=== PATIENT | female | born 1935 | race Hispanic/Latino ===

== ENCOUNTER 2023-04-28 10:59 | Emergency (ER) | payer OTHER ==
[2023-04-28 11:54] LABS: Absolute Lymphocytes (CBC) 1.7 K/uL (0.7-4.9); Hematocrit 38.3 % (36.0-45.0); Lymphocytes % 14.7 % (15.3-44.8); MCV 85.1 fL (80-100); MPV 7.5 fL (7.6-11.3); Platelets 396 thou/uL (152-406); RBC Red Blood Cell Count 4.51 M/uL (3.86-4.86)
[2023-04-28 12:03] LABS: SARS-CoV-2 Antigen Rapid Res Negative (Negative)
[2023-04-28 12:08] LABS: Magnesium 2.6 mg/dL (1.6-2.4); Potassium 4.9 mEq/L (3.5-5.1); Troponin High Sensitivity 12.8 pg/mL (<58.9)
--- NOTE | 2023-04-28 12:11 | RAD REPORT ---
EXAM DESCRIPTION: RAD - Chest Single View - 04/28/2023 11:52 am CLINICAL HISTORY: COUGH Chest pain. COMPARISON: Chest Pa And Lat (2 Views) dated 03/19/2023; Chest Pa And Lat (2 Views) dated 11/30/2021; Chest Single View dated 10/07/2016; Chest Pa And Lat (2 Views) dated 04/26/2016 FINDINGS: Portable technique limits examination quality. Moderate bilateral pulmonary opacities likely representing pulmonary edema. The heart is moderately e nlarged. No displaced fractures. IMPRESSION: Moderate CHF versus volume overload.
--- NOTE | 2023-04-28 13:02 | ER ---
Nurse's Notes [facility] Name: Renetta Ward Age: 87 yrs Sex: Female : 1935 Arrival Date: 04/28/2023 Time: 10:59 Bed 8 Private MD: Teddy Nash V Diagnosis: Cough, pneumonia Presentation: 04/28 11:12 Method Of Arrival: Wheelchair ll1 11:27 Chief complaint: Patient states: Cough and confusion. Ebola Screen: Patient denies ll1 travel to an Ebola-affected area in the 21 days before illness onset. Initial Sepsis Screen: Does the patient meet any 2 criteria? No. Patient's initial sepsis screen is negative. Does the patient have a suspected source of infection? No. Patient's initial sepsis screen is negative. Risk Assessment: Do you want to hurt yourself or someone else? Patient reports no desire to harm self or others. 11:27 Acuity: LISBETH 2 ll1 11:42 Coronavirus screen: At this time, the client does not indicate any symptoms associated kc6 with coronavirus-19. Onset of symptoms was April 28, 2023. Historical: - Allergies: 11:11 No Known Allergies; ll1 - PMHx: 11:11 acid reflux; Hypertension; Hypercholesterolemia; ll1 - Immunization history:: Adult Immunizations up to date. - Social history:: Smoking status: Patient denies any tobacco usage or history of. Screenin:42 [facility] ED Fall Risk Assessment (Adult) History of falling in the last 3 months, kc6 including since admission No falls in past 3 months (0 pts) Confusion or Disorientation Yes (5 pts) Intoxicated or Sedated No (0 pts) Impaired Gait Yes (1 pt) Mobility Assist Device Used Yes (1 pt) Altered Elimination No (0 pt) Score/Fall Risk Level 3 or more points = High Risk. Abuse screen: Denies threats or abuse. Denies injuries from another. Nutritional screening: No deficits noted. Tuberculosis screening: No symptoms or risk factors identified. Assessment: 12:08 General: Appears in no apparent distress. comfortable, obese, well groomed, Behavior is kc6 calm, cooperative, appropriate for age, drowsy. Neuro: Level of Consciousness is awake, alert, obeys commands, Oriented to person, place, time, situation, Appropriate for age Reports headache auditory hallucinations. Cardiovascular: Denies chest pain, Heart tones S1 S2 present Capillary refill < 3 seconds Rhythm is sinus rhythm. Respiratory: Reports cough that is non-productive, Airway is patent Trachea midline Respiratory effort is even, unlabored, Respiratory pattern is regular, symmetrical. GI: No signs and/or symptoms were reported involving the gastrointestinal system. : No signs and/or symptoms were reported regarding the genitourinary system. EENT: No signs and/or symptoms were reported regarding the EENT system. Derm: No signs and/or symptoms reported regarding the dermatologic system. Skin is intact, is healthy with good turgor, Skin is pink, warm \T\ dry. Musculoskeletal: No signs and/or symptoms reported regarding the musculoskeletal system. Circulation, motion, and sensation intact. Capillary refill < 3 seconds, Range of motion: intact in all extremities. 13:08 Reassessment: Patient appears in no apparent distress at this time. No changes from kc6 previously documented assessment. Patient and/or family updated on plan of care and expected duration. Pain level reassessed. Patient is alert, oriented x 3, equal unlabored respirations, skin warm/dry/pink. 14:08 Reassessment: Patient appears in no apparent distress at this time. No changes from kc6 previously documented assessment. Patient and/or family updated on plan of care and expected duration. Pain level reassessed. Patient is alert, oriented x 3, equal unlabored respirations, skin warm/dry/pink. 15:08 Reassessment: Patient appears in no apparent distress at this time. No changes from kc6 previously documented assessment. Patient and/or family updated on plan of care and expected duration. Pain level reassessed. Patient is alert, oriented x 3, equal unlabored respirations, skin warm/dry/pink. Vital Signs: 12:07 BP 196 / 63; Pulse 72; Resp 18 S; Pulse Ox 93% on R/A; kc6 12:46 BP 188 / 67; Pulse 76; Resp 18 S; Temp 97.3(TE); Pulse Ox 95% on R/A; kc6 15:18 BP 164 / 64; Pulse 64; Resp 18 S; Pulse Ox 95% on R/A; kc6 ED Course: 11:01 Patient arrived in ED. as 11:02 Teddy Nash MD is Private Physician. as 11:03 Nina Oviedo MD is Attending Physician. sp3 11:12 Arm band placed on Patient placed in an exam room, on a stretcher. ll1 11:27 Triage completed. ll1 11:38 SARS RAPID Sent. bc6 11:38 Flu Sent. bc6 11:39 Basic Metabolic Panel Sent. bc6 11:39 CBC with Diff Sent. bc6 11:39 Magnesium Sent. bc6 11:39 NT PRO-BNP Sent. bc6 11:39 Troponin HS Sent. bc6 11:39 Inserted saline lock: 22 gauge in right forearm, using aseptic technique. Blood bc6 collected. 11:42 Patient has correct armband on for positive identification. Bed in low position. Call kc6 light in reach. Side rails up X2. Adult w/ patient. Client placed on continuous cardiac and pulse oximetry monitoring. NIBP monitoring applied. monitor and storage bin tender on. 11:42 Patient maintains SpO2 saturation greater than 95% on room air. kc6 11:54 XRAY Chest (1 view) In Process Unspecified. EDMS 12:41 Maria A Malave, RN is Primary Nurse. kc6 15:31 No provider procedures requiring assistance completed. IV discontinued, intact, kc6 bleeding controlled, No redness/swelling at site. Pressure dressing applied. Administered Medications: 13:00 Drug: Rocephin IV 1 grams IV at calculated rate once; Given slow IV push per pharmacy kc6 instructions Route: IV; Rate: calculated rate; Site: right forearm; 15:17 Follow up: Response: No adverse reaction; IV Status: Completed infusion; IV Intake: [id number] 13:00 Drug: Zithromax IVPB 500 mg IVPB once over 1 hrs; mix in 250 mL NS Route: IVPB; Infused kc6 Over: 1 hrs; Site: right forearm; 15:31 Follow up: Response: No adverse reaction; IV Status: Completed infusion; IV Intake: kc6 250ml Medication: 15:32 VIS not applicable for this client. kc6 Intake: 15:17 IV: 50ml; Total: 50ml. kc6 15:31 IV: 250ml; Total: 300ml. kc6 Outcome: 13:01 Discharge ordered by . sp3 15:32 Discharged to home via wheelchair, with family, kc6 15:32 Condition: good 15:32 Discharge instructions given to patient, Instructed on discharge instructions, follow up and referral plans. medication usage, Demonstrated understanding of instructions, follow-up care, medications, Prescriptions given X 1, 15:32 Patient left the ED. kc6 Signatures: Dispatcher [employer] EDMS Cheryl Treviño Lynsay, RN RN ll1 Nina Oviedo MD MD sp3 Maria A Malave RN RN kc6 Sahar Vasquez 6 Corrections: (The following items were deleted from the chart) 12:08 12:07 BP 196 / 63; Pulse 72bpm; Resp 18bpm; Spontaneous; Pulse Ox 88% RA; kc6 kc6
--- NOTE | 2023-04-28 13:02 | EDPHYS ---
Physician Documentation [facility] Name: Renetta Ward Age: 87 yrs Sex: Female : 1935 Arrival Date: 04/28/2023 Time: 10:59 Bed 8 Private MD: Teddy Nash V ED Physician Nina Oviedo HPI: 04/28 11:27 This 87 yrs old Female presents to ER via Wheelchair with complaints of Cough, sp3 hallucinations. 11:27 87-year-old female here with her daughter with a history of Alzheimer's, hypertension, sp3 acid reflux now presents to the ED with chief complaint cough and increasing confusion over the last 3 to 4 days. Patient has been getting Phenergan syrup as prescribed by her PCP. No further work-up has been performed. History and physical and review of systems is severely limited secondary to Alzheimer's but as reported by patient's daughter, there is no symptoms of fever, shortness of breath, chest pain, abdominal pain, vomiting, diarrhea, syncope, rash, known sick contacts, travel history or any other reported symptoms.. Historical: - Allergies: 11:11 No Known Allergies; ll1 - PMHx: 11:11 acid reflux; Hypertension; Hypercholesterolemia; ll1 - Immunization history:: Adult Immunizations up to date. - Social history:: Smoking status: Patient denies any tobacco usage or history of. ROS: 11:28 Unable to obtain ROS due to baseline dementia, sp3 Exam: 11:29 Constitutional: This is a well developed, well nourished patient who is awake, alert, sp3 and in no acute distress. Head/Face: Normocephalic, atraumatic. Eyes: Pupils equal round and reactive to light, extra-ocular motions intact. Lids and lashes normal. Conjunctiva and sclera are non-icteric and not injected. Cornea within normal limits. Periorbital areas with no swelling, redness, or edema. ENT: Nares patent. No nasal discharge, no septal abnormalities noted. External auditory canals are clear. Oropharynx with no redness, swelling, or masses, exudates, or evidence of obstruction, uvula midline. Mucous membranes moist. Neck: Trachea midline, no thyromegaly or masses palpated, and no cervical lymphadenopathy. Supple, full range of motion without nuchal rigidity, or vertebral point tenderness. No Meningismus. Chest/axilla: Normal chest wall appearance and motion. Nontender with no deformity. No lesions are appreciated. Cardiovascular: Regular rate and rhythm with a normal S1 and S2. No gallops, murmurs, or rubs. Normal PMI, no JVD. No pulse deficits. Respiratory: Lungs have equal breath sounds bilaterally, clear to auscultation and percussion. No rales, rhonchi or wheezes noted. No increased work of breathing, no retractions or nasal flaring. Abdomen/GI: Soft, non-tender, with normal bowel sounds. No distension or tympany. No guarding or rebound. No evidence of tenderness throughout. Back: No spinal tenderness. No costovertebral tenderness. Full range of motion. Skin: Warm, dry with normal turgor. Normal color with no rashes, no lesions, and no evidence of cellulitis. MS/ Extremity: Pulses equal, no cyanosis. Neurovascular intact. Full, normal range of motion. Neuro: Awake and alert, GCS 15, oriented to person, place, time, and situation. Cranial nerves II-XII grossly intact. Motor strength 5/5 in all extremities. Sensory grossly intact. Cerebellar exam normal. Normal gait. Psych: Awake, alert, with orientation to person, place and time. Behavior, mood, and affect are within normal limits. 12:40 ECG was reviewed by the Attending Physician. EKG demonstrates normal sinus rhythm at 71 sp3 bpm with normal intervals, normal QRS, normal axis, normal ST/T-segment's without evidence of acute ischemia. Vital Signs: 12:07 BP 196 / 63; Pulse 72; Resp 18 S; Pulse Ox 93% on R/A; kc6 12:46 BP 188 / 67; Pulse 76; Resp 18 S; Temp 97.3(TE); Pulse Ox 95% on R/A; kc6 15:18 BP 164 / 64; Pulse 64; Resp 18 S; Pulse Ox 95% on R/A; kc6 MDM: 11:17 Patient medically screened. sp3 11:29 Data reviewed: vital signs, nurses notes, lab test result(s), EKG, radiologic studies. sp3 ED course: 87 year-old female with chief complaint cough. Patient is alert and talking with no difficulty. No active cough in the ED. Differential diagnosis includes bronchitis, pneumonia, CHF (although no history of it), ACS, among others. I am not highly suspicious for sepsis, septic shock, CVA, aortic pathology including dissection and/or aneurysm, mediastinitis, GI pathology, or any other critical process at this time. Work-up will include chest x-ray, EKG, laboratory values and general support. Disposition likely discharge home on appropriate medications and antibiotics as indicated.. 13:00 ED course: Patient with mild CHF as well as possible infiltrates on her x-ray. I sp3 believe this is more infectious than fluid overload and I will treat as community-acquired pneumonia with IV Rocephin and IV Zithromax given in the ED and patient to go home on oral Zithromax. Patient's creatinine is elevated as well however daughter does state that this may have been old. Patient clinically is in no acute distress talking in full sentences though is still confused at baseline Alzheimer's. If patient does not improve I have instructed patient to return here for repeat lab work or follow-up with her PCP. She is to return here for any worsening symptoms as well.. 04/28 11:25 Order name: Basic Metabolic Panel; Complete Time: 12:3 04/28 11:25 Order name: CBC with Diff; Complete Time: 12: 3 04/28 11:25 Order name: Magnesium; Complete Time: 12: 3 04/28 11:25 Order name: NT PRO-BNP; Complete Time: 12: 3 04/28 11:25 Order name: Troponin HS; Complete Time: 12: 3 04/28 11:25 Order name: Flu; Complete Time: 12: sp3 04/28 11:25 Order name: SARS RAPID; Complete Time: 12: sp3 04/28 11:25 Order name: XRAY Chest (1 view); Complete Time: 12: 3 04/28 11:25 Order name: EKG; Complete Time: 3 04/28 11:25 Order name: Cardiac monitoring; Complete Time: :3 04/28 11:25 Order name: EKG - Nurse/Tech; Complete Time: : 3 04/28 11:25 Order name: IV Saline Lock; Complete Time: 11: sp3 04/28 11:25 Order name: Labs collected and sent; Complete Time: 11:39 sp3 04/28 11:25 Order name: O2 Per Protocol; Complete Time: 11:41 sp3 04/28 11:25 Order name: O2 Sat Monitoring; Complete Time: 11:42 sp3 04/28 11:25 Order name: Recheck Vital Signs; Complete Time: 12:07 sp3 04/28 12:39 Order name: Recheck Vital Signs: Temperature; Complete Time: 12:49 sp3 Administered Medications: 13:00 Drug: Rocephin IV 1 grams IV at calculated rate once; Given slow IV push per pharmacy kc6 instructions Route: IV; Rate: calculated rate; Site: right forearm; 15:17 Follow up: Response: No adverse reaction; IV Status: Completed infusion; IV Intake: [id number] 13:00 Drug: Zithromax IVPB 500 mg IVPB once over 1 hrs; mix in 250 mL NS Route: IVPB; Infused kc6 Over: 1 hrs; Site: right forearm; 15:31 Follow up: Response: No adverse reaction; IV Status: Completed infusion; IV Intake: kc6 250ml Disposition Summary: 04/28/23 13:01 Discharge Ordered Notes: Location: Home sp3 Condition: Stable sp3 Diagnosis - Cough, pneumonia sp3 Followup: sp3 - With: Private Physician - When: Upon discharge from the Emergency Department - Reason: Continuance of care Discharge Instructions: - Discharge Summary Sheet sp3 - Community-Acquired Pneumonia, Adult sp3 Forms: - Medication Reconciliation Form sp3 - Thank You Letter sp3 - Antibiotic Education sp3 - Prescription Opioid Use sp3 - Patient Portal Instructions sp3 - Leadership Thank You Letter sp3 Prescriptions: - Zithromax Z-Kenn 250 mg Oral Tablet - take 1 tablet ORAL route as directed for 5 days Day 1 - take two (2) tablets sp3 one time. Day 2, 3, 4 , 5 take one (1) tablet once daily.; 6 tablet; Refills: 0, Product Selection Permitted Signatures: Dispatcher [employer] EDMamadou Limon RN RN ll1 Nina Oviedo MD MD sp3 Maria A Malave RN RN kc6
[2023-04-28] MEDS ORDERED: CEFTRIAXONE 1000 MG/VIAL ONE (13:08)
[2023-04-28] MEDS ORDERED: AZITHROMYCIN 500 MG INJ IVPB ONE (13:08)
[2023-04-28] MEDS ORDERED: NA CHLORIDE 0.9% 250 ML ONE (13:08)
[2023-04-28 15:37] VITALS: TEMP 97.3; O2SAT 95
[2023-04-28 15:39] VITALS: BP 164/64
== END 2023-04-28 15:32 | disposition home or self-care (01) ==
LOC: ER 10:59
DX: J18.9 Pneumonia, unspecified organism (principal); Z11.52 Encounter for screening for COVID-19; I10 Essential (primary) hypertension; F03.90 Unspecified dementia, unspecified severity, without behavioral disturbance, psychotic disturbance, mood disturbance, and anxiety
CPT/HCPCS: 96365; 96368; 93005; 85025; 80048; 36415; 83735; 84484; 83880; 87804 ×2; 71045; 99285; 96366; 87811; J7050; J0696

== ENCOUNTER 2023-04-28 22:41 | Emergency (ER) | payer OTHER ==
--- OUTSIDE RECORDS SUMMARY | 2023-04-28 22:45 | XMS REPORT | Continuity of Care Document ---
:1935 Author Organization [facility] t Address [address] [place] [address] [place] [id number] Care Team Providers Name Role Phone Azael Attending Clinician Unavailable Dwayne Albright Attending Clinician [phone] Leonard Attending Clinician Unavailable Azael Admitting Clinician Unavailable Leonard Admitting Clinician Unavailable Payers Payer Name Policy Type Policy Number Effective Date Expiration Date S rita MEDICARE B-[place]: [id number] 2004 [employer] 00:00:00 [employer] [id number] 2016 [facility] (MEDICAID 00:[id number] [id number]) Problems Condition Condition Condition Status Onset Resolution Last Treating Co mments Source Name Details Category Date Date Treatment Clinician Date Kyphosis Kyphosis Problem Active Azale a of of 11-10 [facility] thoracic Thoracic 00:00: dic spine Spine 00 Sports Medicin e Closed Closed Problem Active Joleen fracture Fracture 11-10 Orth[facility] e of distal of Distal 00:00: dic end of End of 00 Sports right Right Medicin radius Radius e 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 Medications Ordered Filled Start Stop Current Ordering Indication Dosage Frequency Signature Comments Components Source Medication Medication Date Date Medication? Clinician (SIG) Name Name omeprazole omeprazole No omeprazole Joleen 20 mg 20 mg 20 mg [facility] capsule,del capsule,del capsule,de dic ayed ayed layed Sports release release release Medici n TAKE ONE TAKE ONE TAKE ONE e (1) (1) (1) CAPSULE(S) CAPSULE(S) CAPSULE(S) BY MOUTH BY MOUTH BY MOUTH ONCE A DAY. ONCE A DAY. ONCE A DAY. paroxetine paroxetine No paroxetine Joleen 20 mg 20 mg 20 mg [facility] tablet TAKE tablet TAKE tablet dic ONE (1) ONE (1) TAKE ONE Sport s TABLET(S) TABLET(S) (1) Medic in BY MOUTH BY MOUTH TABLET(S) e ONCE A DAY. ONCE A DAY. BY MOUTH ONCE A DAY. propranolol propranolol No propranolo Joleen ER 160 mg ER 160 mg l ER 160 O [facility] capsule,24 capsule,24 mg dic hr,extended hr,extended capsule,24 Sports release release hr,extende Med icin TAKE ONE TAKE ONE d release e (1) (1) TAKE ONE CAPSULE(S) CAPSULE(S) (1) BY MOUTH BY MOUTH CAPSULE(S) ONCE A DAY ONCE A DAY BY MOUTH BEFORE BEFORE ONCE A DAY MEAL. MEAL. BEFORE MEAL. spironolact spironolact No spironolac Joleen one 50 mg one 50 mg tone 50 mg [facility] tablet TAKE tablet TAKE tablet dic ONE (1) ONE (1) TAKE ONE Sport s TABLET(S) TABLET(S) (1) Medic in BY MOUTH BY MOUTH TABLET(S) e ONCE A DAY. ONCE A DAY. BY MOUTH ONCE A DAY. tramadol 50 tramadol 50 No tramadol Joleen mg tablet mg tablet 50 mg Orth ope TAKE ONE TAKE ONE tablet dic (1) (1) TAKE ONE Sports TABLET(S) TABLET(S) (1) Medic in BY MOUTH BY MOUTH TABLET(S) e THREE TIMES THREE TIMES BY MOUTH A DAY A DAY THREE NEEDED. NEEDED. TIMES A DAY NEEDED. amoxicillin amoxicillin No amoxicilli Joleen [phone] [facility] mg-potassiu mg-potassiu mg-potassi dic m m um Sports clavulanate clavulanate clavulanat Medicin 125 mg 125 mg e 125 mg e tablet TAKE tablet TAKE tablet ONE (1) ONE (1) TAKE ONE TABLET(S) TABLET(S) (1) BY MOUTH BY MOUTH TABLET(S) EVERY EVERY BY MOUTH TWELVE TWELVE EVERY HOURS WITH HOURS WITH TWELVE FOOD. FOOD. HOURS WITH FOOD. clonidine clonidine No clonidine Joleen HCl 0.1 mg HCl 0.1 mg HCl 0.1 mg [facility] tablet TAKE tablet TAKE tablet dic ONE (1) ONE (1) TAKE ONE Sport s TABLET(S) TABLET(S) (1) Medic in BY MOUTH BY MOUTH TABLET(S) e TWICE A TWICE A BY MOUTH DAY. DAY. TWICE A DAY. clotrimazol clotrimazol No clotrimazo Joleen e-betametha e-betametha le-betamet [facility] sone 1 sone 1 hasone 1 dic %-0.05 % %-0.05 % %-0.05 % Spo rts topical topical topical Medici n cream APPLY cream APPLY cream e TOPICALLY TOPICALLY APPLY TO FUNGAL TO FUNGAL TOPICALLY SKIN SKIN TO FUNGAL LESIONS LESIONS SKIN TWICE TWICE LESIONS DAILY. DAILY. TWICE DAILY. Constulose Constulose No Constulose Joleen 10 gram/15 10 gram/15 10 gram/15 [facility] mL oral mL oral mL oral dic solution solution solution Spo rts TAKE 15 TAKE 15 TAKE 15 Medici n ML(S) BY ML(S) BY ML(S) BY e MOUTH TWICE MOUTH TWICE MOUTH A DAY A DAY TWICE A NEEDED FOR NEEDED FOR DAY CONSTIPATIO CONSTIPATIO NEEDED FOR N. N. CONSTIPATI ON. donepezil donepezil No donepezil Joleen 10 mg 10 mg 10 mg [facility] tablet TAKE tablet TAKE tablet dic ONE (1) ONE (1) TAKE ONE Sport s TABLET(S) TABLET(S) (1) Medic in BY MOUTH BY MOUTH TABLET(S) e ONCE A DAY ONCE A DAY BY MOUTH AT BEDTIME. AT BEDTIME. ONCE A DAY AT BEDTIME. hydralazine hydralazine No hydralazin Joleen 100 mg 100 mg e 100 mg [facility] tablet TAKE tablet TAKE tablet dic ONE (1) ONE (1) TAKE ONE Sport s TABLET(S) TABLET(S) (1) Medic in BY MOUTH BY MOUTH TABLET(S) e TWICE A TWICE A BY MOUTH DAY. DAY. TWICE A DAY. hydrochloro hydrochloro No hydrochlor Joleen thiazide thiazide othiazide Or thope 12.5 mg 12.5 mg 12.5 mg dic tablet TAKE tablet TAKE tablet Sports ONE (1) ONE (1) TAKE ONE Medic in TABLET(S) TABLET(S) (1) e BY MOUTH BY MOUTH TABLET(S) DAILY. DAILY. BY MOUTH DAILY. latanoprost latanoprost No latanopros Joleen 0.005 % eye 0.005 % eye t 0.005 % [facility] drops drops eye drops dic INSTILL 1 INSTILL 1 INSTILL 1 Sports DROP IN DROP IN DROP IN Medici n BOTH EYES BOTH EYES BOTH EYES e EVERY NIGHT EVERY NIGHT EVERY AT BEDTIME AT BEDTIME NIGHT AT BEDTIME loratadine loratadine No loratadine Joleen 10 mg 10 mg 10 mg [facility] tablet TAKE tablet TAKE tablet dic ONE (1) ONE (1) TAKE ONE Sport s TABLET(S) TABLET(S) (1) Medic in BY MOUTH BY MOUTH TABLET(S) e ONCE A DAY. ONCE A DAY. BY MOUTH ONCE A DAY. losartan losartan No losartan Aza madina 100 mg 100 mg 100 mg [facility] tablet TAKE tablet TAKE tablet dic ONE (1) ONE (1) TAKE ONE Sport s TABLET(S) TABLET(S) (1) Medic in BY MOUTH BY MOUTH TABLET(S) e DAILY. DAILY. BY MOUTH DAILY. losartan losartan No losartan Aza madina 100 100 100 [facility] mg-hydrochl mg-hydrochl mg-hydroch dic orothiazide orothiazide lorothiazi Sports 12.5 mg 12.5 mg de 12.5 mg Med icin tablet TAKE tablet TAKE tablet e ONE (1) ONE (1) TAKE ONE TABLET(S) TABLET(S) (1) BY MOUTH BY MOUTH TABLET(S) ONCE A DAY. ONCE A DAY. BY MOUTH ONCE A DAY. metoprolol metoprolol No metoprolol Joleen tartrate tartrate tartrate [facility] 100 mg 100 mg 100 mg dic tablet TAKE tablet TAKE tablet Sports ONE (1) ONE (1) TAKE ONE Medic in TABLET(S) TABLET(S) (1) e BY MOUTH BY MOUTH TABLET(S) TWICE A TWICE A BY MOUTH DAY. DAY. TWICE A DAY. montelukast montelukast No montelukas Joleen 10 mg 10 mg t 10 mg [facility] tablet TAKE tablet TAKE tablet dic ONE (1) ONE (1) TAKE ONE Sport s TABLET(S) TABLET(S) (1) Medic in BY MOUTH BY MOUTH TABLET(S) e ONCE A DAY. ONCE A DAY. BY MOUTH ONCE A DAY. Myrbetriq Myrbetriq No Myrbetriq Joleen 25 mg 25 mg 25 mg [facility] tablet,exte tablet,exte tablet,ext dic nded nded ended Sports release release release Medici n TAKE ONE TAKE ONE TAKE ONE e (1) (1) (1) TABLET(S) TABLET(S) TABLET(S) BY MOUTH BY MOUTH BY MOUTH ONCE A DAY. ONCE A DAY. ONCE A DAY. omeprazole omeprazole No omeprazole Joleen 20 mg 20 mg 20 mg [facility] capsule,del capsule,del capsule,de dic ayed ayed layed Sports release release release Medici n TAKE ONE TAKE ONE TAKE ONE e (1) (1) (1) CAPSULE(S) CAPSULE(S) CAPSULE(S) BY MOUTH BY MOUTH BY MOUTH ONCE A DAY. ONCE A DAY. ONCE A DAY. paroxetine paroxetine No paroxetine Joleen 20 mg 20 mg 20 mg [facility] tablet TAKE tablet TAKE tablet dic ONE (1) ONE (1) TAKE ONE Sport s TABLET(S) TABLET(S) (1) Medic in BY MOUTH BY MOUTH TABLET(S) e ONCE A DAY. ONCE A DAY. BY MOUTH ONCE A DAY. propranolol propranolol No propranolo Joleen ER 160 mg ER 160 mg l ER 160 [facility] capsule,24 capsule,24 mg dic hr,extended hr,extended capsule,24 Sports release release hr,extende Med icin TAKE ONE TAKE ONE d release e (1) (1) TAKE ONE CAPSULE(S) CAPSULE(S) (1) BY MOUTH BY MOUTH CAPSULE(S) ONCE A DAY ONCE A DAY BY MOUTH BEFORE BEFORE ONCE A DAY MEAL. MEAL. BEFORE MEAL. tramadol 50 tramadol 50 No tramadol Joleen mg tablet mg tablet 50 mg Orth ope TAKE ONE TAKE ONE tablet dic (1) (1) TAKE ONE Sports TABLET(S) TABLET(S) (1) Medic in BY MOUTH BY MOUTH TABLET(S) e THREE TIMES THREE TIMES BY MOUTH A DAY A DAY THREE NEEDED FOR NEEDED FOR TIMES A PAIN. PAIN. DAY NEEDED FOR PAIN. albuterol albuterol No albuterol Joleen sulfate HFA sulfate HFA sulfate [facility] 90 90 HFA 90 dic mcg/actuati mcg/actuati mcg/actuat Sports on aerosol on aerosol ion Med icin inhaler inhaler aerosol e INHALE ONE INHALE ONE inhaler (1) PUFF BY (1) PUFF BY INHALE ONE MOUTH EVERY MOUTH EVERY (1) PUFF FOUR HOURS FOUR HOURS BY MOUTH NEEDED. NEEDED. EVERY FOUR HOURS NEEDED. amoxicillin amoxicillin No amoxicilli Joleen [phone] [facility] mg-potassiu mg-potassiu mg-potassi dic m m um Sports clavulanate clavulanate clavulanat Medicin 125 mg 125 mg e 125 mg e tablet TAKE tablet TAKE tablet ONE (1) ONE (1) TAKE ONE TABLET(S) TABLET(S) (1) BY MOUTH BY MOUTH TABLET(S) EVERY EVERY BY MOUTH TWELVE TWELVE EVERY HOURS WITH HOURS WITH TWELVE FOOD. FOOD. HOURS WITH FOOD. clonidine clonidine No clonidine Joleen HCl 0.1 mg HCl 0.1 mg HCl 0.1 mg [facility] tablet TAKE tablet TAKE tablet dic ONE (1) ONE (1) TAKE ONE Sport s TABLET(S) TABLET(S) (1) Medic in BY MOUTH BY MOUTH TABLET(S) e TWICE A TWICE A BY MOUTH DAY. DAY. TWICE A DAY. clotrimazol clotrimazol No clotrimazo Joleen e-betametha e-betametha le-betamet [facility] sone 1 sone 1 hasone 1 dic %-0.05 % %-0.05 % %-0.05 % Spo rts topical topical topical Medici n cream APPLY cream APPLY cream e TOPICALLY TOPICALLY APPLY TO FUNGAL TO FUNGAL TOPICALLY SKIN SKIN TO FUNGAL LESIONS LESIONS SKIN TWICE TWICE LESIONS DAILY. DAILY. TWICE DAILY. Constulose Constulose No Constulose Joleen 10 gram/15 10 gram/15 10 gram/15 [facility] mL oral mL oral mL oral dic solution solution solution Spo rts GIVE THIRTY GIVE THIRTY GIVE M edicin (30) ML(S) (30) ML(S) THIRTY e BY MOUTH BY MOUTH (30) ML(S) FOUR TIMES FOUR TIMES BY MOUTH DAILY. DAILY. FOUR TIMES DAILY. donepezil donepezil No donepezil Joleen 10 mg 10 mg 10 mg [facility] tablet TAKE tablet TAKE tablet dic ONE (1) ONE (1) TAKE ONE Sport s TABLET(S) TABLET(S) (1) Medic in BY MOUTH BY MOUTH TABLET(S) e ONCE A DAY ONCE A DAY BY MOUTH AT BEDTIME. AT BEDTIME. ONCE A DAY AT BEDTIME. hydralazine hydralazine No hydralazin Joleen 100 mg 100 mg e 100 mg [facility] tablet TAKE tablet TAKE tablet dic ONE (1) ONE (1) TAKE ONE Sport s TABLET(S) TABLET(S) (1) Medic in BY MOUTH BY MOUTH TABLET(S) e TWICE A TWICE A BY MOUTH DAY. DAY. TWICE A DAY. hydrochloro hydrochloro No hydrochlor Joleen thiazide thiazide othiazide Or thope 12.5 mg 12.5 mg 12.5 mg dic tablet TAKE tablet TAKE tablet Sports ONE (1) ONE (1) TAKE ONE Medic in TABLET(S) TABLET(S) (1) e BY MOUTH BY MOUTH TABLET(S) DAILY. DAILY. BY MOUTH DAILY. latanoprost latanoprost No latanopros Joleen 0.005 % eye 0.005 % eye t 0.005 % [facility] drops drops eye drops dic INSTILL 1 INSTILL 1 INSTILL 1 Sports DROP IN DROP IN DROP IN Medici n BOTH EYES BOTH EYES BOTH EYES e EVERY NIGHT EVERY NIGHT EVERY AT BEDTIME AT BEDTIME NIGHT AT BEDTIME loratadine loratadine No loratadine Joleen 10 mg 10 mg 10 mg [facility] tablet TAKE tablet TAKE tablet dic ONE (1) ONE (1) TAKE ONE Sport s TABLET(S) TABLET(S) (1) Medic in BY MOUTH BY MOUTH TABLET(S) e ONCE A DAY. ONCE A DAY. BY MOUTH ONCE A DAY. losartan losartan No losartan Aza madina 100 mg 100 mg 100 mg [facility] tablet TAKE tablet TAKE tablet dic ONE (1) ONE (1) TAKE ONE Sport s TABLET(S) TABLET(S) (1) Medic in BY MOUTH BY MOUTH TABLET(S) e DAILY. DAILY. BY MOUTH DAILY. losartan losartan No losartan Aza madina 100 100 100 [facility] mg-hydrochl mg-hydrochl mg-hydroch dic orothiazide orothiazide lorothiazi Sports 12.5 mg 12.5 mg de 12.5 mg Med icin tablet TAKE tablet TAKE tablet e ONE (1) ONE (1) TAKE ONE TABLET(S) TABLET(S) (1) BY MOUTH BY MOUTH TABLET(S) ONCE A DAY. ONCE A DAY. BY MOUTH ONCE A DAY. metoprolol metoprolol No metoprolol Joleen tartrate tartrate tartrate [facility] 100 mg 100 mg 100 mg dic tablet TAKE tablet TAKE tablet Sports ONE (1) ONE (1) TAKE ONE Medic in TABLET(S) TABLET(S) (1) e BY MOUTH BY MOUTH TABLET(S) TWICE A TWICE A BY MOUTH DAY. DAY. TWICE A DAY. montelukast montelukast No montelukas Joleen 10 mg 10 mg t 10 mg [facility] tablet TAKE tablet TAKE tablet dic ONE (1) ONE (1) TAKE ONE Sport s TABLET(S) TABLET(S) (1) Medic in BY MOUTH BY MOUTH TABLET(S) e ONCE A DAY. ONCE A DAY. BY MOUTH ONCE A DAY. Myrbetriq Myrbetriq No Myrbetriq Joleen 25 mg 25 mg 25 mg [facility] tablet,exte tablet,exte tablet,ext dic nded nded ended Sports release release release Medici n TAKE ONE TAKE ONE TAKE ONE e (1) (1) (1) TABLET(S) TABLET(S) TABLET(S) BY MOUTH BY MOUTH BY MOUTH ONCE A DAY. ONCE A DAY. ONCE A DAY. omeprazole omeprazole No omeprazole Joleen 20 mg 20 mg 20 mg [facility] capsule,del capsule,del capsule,de dic ayed ayed layed Sports release release release Medici n TAKE ONE TAKE ONE TAKE ONE e (1) (1) (1) CAPSULE(S) CAPSULE(S) CAPSULE(S) BY MOUTH BY MOUTH BY MOUTH ONCE A DAY. ONCE A DAY. ONCE A DAY. paroxetine paroxetine No paroxetine Joleen 20 mg 20 mg 20 mg [facility] tablet TAKE tablet TAKE tablet dic ONE (1) ONE (1) TAKE ONE Sport s TABLET(S) TABLET(S) (1) Medic in BY MOUTH BY MOUTH TABLET(S) e ONCE A DAY. ONCE A DAY. BY MOUTH ONCE A DAY. propranolol propranolol No propranolo Joleen ER 160 mg ER 160 mg l ER 160 [facility] capsule,24 capsule,24 mg dic hr,extended hr,extended capsule,24 Sports release release hr,extende Med icin TAKE ONE TAKE ONE d release e (1) (1) TAKE ONE CAPSULE(S) CAPSULE(S) (1) BY MOUTH BY MOUTH CAPSULE(S) ONCE A DAY ONCE A DAY BY MOUTH BEFORE BEFORE ONCE A DAY MEAL. MEAL. BEFORE MEAL. tramadol 50 tramadol 50 No tramadol Joleen mg tablet mg tablet 50 mg Orth [facility]pe TAKE ONE TAKE ONE tablet dic (1) (1) TAKE ONE Sports TABLET(S) TABLET(S) (1) Medic in BY MOUTH BY MOUTH TABLET(S) e THREE TIMES THREE TIMES BY MOUTH A DAY A DAY THREE NEEDED. NEEDED. TIMES A DAY NEEDED. albuterol albuterol No albuterol Joleen sulfate HFA sulfate HFA sulfate [facility] 90 90 HFA 90 dic mcg/actuati mcg/actuati mcg/actuat Sports on aerosol on aerosol ion Med icin inhaler inhaler aerosol e INHALE ONE INHALE ONE inhaler (1) PUFF BY (1) PUFF BY INHALE ONE MOUTH EVERY MOUTH EVERY (1) PUFF FOUR HOURS FOUR HOURS BY MOUTH NEEDED. NEEDED. EVERY FOUR HOURS NEEDED. amoxicillin amoxicillin No amoxicilli Joleen [phone] [facility] mg-potassiu mg-potassiu mg-potassi dic m m um Sports clavulanate clavulanate clavulanat Medicin 125 mg 125 mg e 125 mg e tablet TAKE tablet TAKE tablet ONE (1) ONE (1) TAKE ONE TABLET(S) TABLET(S) (1) BY MOUTH BY MOUTH TABLET(S) EVERY EVERY BY MOUTH TWELVE TWELVE EVERY HOURS WITH HOURS WITH TWELVE FOOD. FOOD. HOURS WITH FOOD. clonidine clonidine No clonidine Joleen HCl 0.1 mg HCl 0.1 mg HCl 0.1 mg [facility] tablet TAKE tablet TAKE tablet dic ONE (1) ONE (1) TAKE ONE Sport s TABLET(S) TABLET(S) (1) Medic in BY MOUTH BY MOUTH TABLET(S) e TWICE A TWICE A BY MOUTH DAY. DAY. TWICE A DAY. clotrimazol clotrimazol No clotrimazo Joleen e-betametha e-betametha le-betamet [facility] sone 1 sone 1 hasone 1 dic %-0.05 % %-0.05 % %-0.05 % Spo rts topical topical topical Medici n cream APPLY cream APPLY cream e TOPICALLY TOPICALLY APPLY TO FUNGAL TO FUNGAL TOPICALLY SKIN SKIN TO FUNGAL LESIONS LESIONS SKIN TWICE TWICE LESIONS DAILY. DAILY. TWICE DAILY. Constulose Constulose No Constulose Joleen 10 gram/15 10 gram/15 10 gram/15 [facility] mL oral mL oral mL oral dic solution solution solution Spo rts GIVE THIRTY GIVE THIRTY GIVE M edicin (30) ML(S) (30) ML(S) THIRTY e BY MOUTH BY MOUTH (30) ML(S) FOUR TIMES FOUR TIMES BY MOUTH DAILY. DAILY. FOUR TIMES DAILY. donepezil donepezil No donepezil Joleen 10 mg 10 mg 10 mg [facility] tablet TAKE tablet TAKE tablet dic ONE (1) ONE (1) TAKE ONE Sport s TABLET(S) TABLET(S) (1) Medic in BY MOUTH BY MOUTH TABLET(S) e ONCE A DAY ONCE A DAY BY MOUTH AT BEDTIME. AT BEDTIME. ONCE A DAY AT BEDTIME. hydralazine hydralazine No hydralazin Joleen 100 mg 100 mg e 100 mg [facility] tablet TAKE tablet TAKE tablet dic ONE (1) ONE (1) TAKE ONE Sport s TABLET(S) TABLET(S) (1) Medic in BY MOUTH BY MOUTH TABLET(S) e TWICE A TWICE A BY MOUTH DAY. DAY. TWICE A DAY. hydrochloro hydrochloro No hydrochlor Joleen thiazide thiazide othiazide Or thope 12.5 mg 12.5 mg 12.5 mg dic tablet TAKE tablet TAKE tablet Sports ONE (1) ONE (1) TAKE ONE Medic in TABLET(S) TABLET(S) (1) e BY MOUTH BY MOUTH TABLET(S) DAILY. DAILY. BY MOUTH DAILY. latanoprost latanoprost No latanopros Joleen 0.005 % eye 0.005 % eye t 0.005 % [facility] drops drops eye drops dic INSTILL 1 INSTILL 1 INSTILL 1 Sports DROP IN DROP IN DROP IN Medici n BOTH EYES BOTH EYES BOTH EYES e EVERY NIGHT EVERY NIGHT EVERY AT BEDTIME AT BEDTIME NIGHT AT BEDTIME loratadine loratadine No loratadine Joleen 10 mg 10 mg 10 mg [facility] tablet TAKE tablet TAKE tablet dic ONE (1) ONE (1) TAKE ONE Sport s TABLET(S) TABLET(S) (1) Medic in BY MOUTH BY MOUTH TABLET(S) e ONCE A DAY. ONCE A DAY. BY MOUTH ONCE A DAY. losartan losartan No losartan Aza madina 100 mg 100 mg 100 mg [facility] tablet TAKE tablet TAKE tablet dic ONE (1) ONE (1) TAKE ONE Sport s TABLET(S) TABLET(S) (1) Medic in BY MOUTH BY MOUTH TABLET(S) e DAILY. DAILY. BY MOUTH DAILY. losartan losartan No losartan Aza madina 100 100 100 [facility] mg-hydrochl mg-hydrochl mg-hydroch dic orothiazide orothiazide lorothiazi Sports 12.5 mg 12.5 mg de 12.5 mg Med icin tablet TAKE tablet TAKE tablet e ONE (1) ONE (1) TAKE ONE TABLET(S) TABLET(S) (1) BY MOUTH BY MOUTH TABLET(S) ONCE A DAY. ONCE A DAY. BY MOUTH ONCE A DAY. metoprolol metoprolol No metoprolol Joleen tartrate tartrate tartrate [facility] 100 mg 100 mg 100 mg dic tablet TAKE tablet TAKE tablet Sports ONE (1) ONE (1) TAKE ONE Medic in TABLET(S) TABLET(S) (1) e BY MOUTH BY MOUTH TABLET(S) TWICE A TWICE A BY MOUTH DAY. DAY. TWICE A DAY. montelukast montelukast No montelukas Joleen 10 mg 10 mg t 10 mg [facility] tablet TAKE tablet TAKE tablet dic ONE (1) ONE (1) TAKE ONE Sport s TABLET(S) TABLET(S) (1) Medic in BY MOUTH BY MOUTH TABLET(S) e ONCE A DAY. ONCE A DAY. BY MOUTH ONCE A DAY. Myrbetriq Myrbetriq No Myrbetriq Joleen 25 mg 25 mg 25 mg [facility] tablet,exte tablet,exte tablet,ext dic nded nded ended Sports release release release Medici n TAKE ONE TAKE ONE TAKE ONE e (1) (1) (1) TABLET(S) TABLET(S) TABLET(S) BY MOUTH BY MOUTH BY MOUTH ONCE A DAY. ONCE A DAY. ONCE A DAY. omeprazole omeprazole No omeprazole Joleen 20 mg 20 mg 20 mg [facility] capsule,del capsule,del capsule,de dic ayed ayed layed Sports release release release Medici n TAKE ONE TAKE ONE TAKE ONE e (1) (1) (1) CAPSULE(S) CAPSULE(S) CAPSULE(S) BY MOUTH BY MOUTH BY MOUTH ONCE A DAY. ONCE A DAY. ONCE A DAY. paroxetine paroxetine No paroxetine Joleen 20 mg 20 mg 20 mg [facility] tablet TAKE tablet TAKE tablet dic ONE (1) ONE (1) TAKE ONE Sport s TABLET(S) TABLET(S) (1) Medic in BY MOUTH BY MOUTH TABLET(S) e ONCE A DAY. ONCE A DAY. BY MOUTH ONCE A DAY. propranolol propranolol No propranolo Joleen ER 160 mg ER 160 mg l ER 160 [facility] capsule,24 capsule,24 mg dic hr,extended hr,extended capsule,24 Sports release release hr,extende Med icin TAKE ONE TAKE ONE d release e (1) (1) TAKE ONE CAPSULE(S) CAPSULE(S) (1) BY MOUTH BY MOUTH CAPSULE(S) ONCE A DAY ONCE A DAY BY MOUTH BEFORE BEFORE ONCE A DAY MEAL. MEAL. BEFORE MEAL. tramadol 50 tramadol 50 No tramadol Joleen mg tablet mg tablet 50 mg [facility] TAKE ONE TAKE ONE tablet dic (1) (1) TAKE ONE Sports TABLET(S) TABLET(S) (1) Medic in BY MOUTH BY MOUTH TABLET(S) e THREE TIMES THREE TIMES BY MOUTH A DAY A DAY THREE NEEDED. NEEDED. TIMES A DAY NEEDED. albuterol albuterol No albuterol Joleen sulfate HFA sulfate HFA sulfate [facility] 90 90 HFA 90 dic mcg/actuati mcg/actuati mcg/actuat Sports on aerosol on aerosol ion Med icin inhaler inhaler aerosol e INHALE ONE INHALE ONE inhaler (1) PUFF BY (1) PUFF BY INHALE ONE MOUTH EVERY MOUTH EVERY (1) PUFF FOUR HOURS FOUR HOURS BY MOUTH NEEDED. NEEDED. EVERY FOUR HOURS NEEDED. amoxicillin amoxicillin No amoxicilli Joleen [phone] [facility] mg-potassiu mg-potassiu mg-potassi dic m m um Sports clavulanate clavulanate clavulanat Medicin 125 mg 125 mg e 125 mg e tablet TAKE tablet TAKE tablet ONE (1) ONE (1) TAKE ONE TABLET(S) TABLET(S) (1) BY MOUTH BY MOUTH TABLET(S) EVERY EVERY BY MOUTH TWELVE TWELVE EVERY HOURS WITH HOURS WITH TWELVE FOOD. FOOD. HOURS WITH FOOD. clonidine clonidine No clonidine Joleen HCl 0.1 mg HCl 0.1 mg HCl 0.1 mg [facility] tablet TAKE tablet TAKE tablet dic ONE (1) ONE (1) TAKE ONE Sport s TABLET(S) TABLET(S) (1) Medic in BY MOUTH BY MOUTH TABLET(S) e TWICE A TWICE A BY MOUTH DAY. DAY. TWICE A DAY. clotrimazol clotrimazol No clotrimazo Joleen e-betametha e-betametha le-betamet [facility] sone 1 sone 1 hasone 1 dic %-0.05 % %-0.05 % %-0.05 % Spo rts topical topical topical Medici n cream APPLY cream APPLY cream e TOPICALLY TOPICALLY APPLY TO FUNGAL TO FUNGAL TOPICALLY SKIN SKIN TO FUNGAL LESIONS LESIONS SKIN TWICE TWICE LESIONS DAILY. DAILY. TWICE DAILY. Constulose Constulose No Constulose Joleen 10 gram/15 10 gram/15 10 gram/15 [facility] mL oral mL oral mL oral dic solution solution solution Spo rts GIVE THIRTY GIVE THIRTY GIVE M edicin (30) ML(S) (30) ML(S) THIRTY e BY MOUTH BY MOUTH (30) ML(S) FOUR TIMES FOUR TIMES BY MOUTH DAILY. DAILY. FOUR TIMES DAILY. donepezil donepezil No donepezil Joleen 10 mg 10 mg 10 mg [facility] tablet TAKE tablet TAKE tablet dic ONE (1) ONE (1) TAKE ONE Sport s TABLET(S) TABLET(S) (1) Medic in BY MOUTH BY MOUTH TABLET(S) e ONCE A DAY ONCE A DAY BY MOUTH AT BEDTIME. AT BEDTIME. ONCE A DAY AT BEDTIME. hydralazine hydralazine No hydralazin Joleen 100 mg 100 mg e 100 mg [facility] tablet TAKE tablet TAKE tablet dic ONE (1) ONE (1) TAKE ONE Sport s TABLET(S) TABLET(S) (1) Medic in BY MOUTH BY MOUTH TABLET(S) e TWICE A TWICE A BY MOUTH DAY. DAY. TWICE A DAY. hydrochloro hydrochloro No hydrochlor Joleen thiazide thiazide othiazide Or thope 12.5 mg 12.5 mg 12.5 mg dic tablet TAKE tablet TAKE tablet Sports ONE (1) ONE (1) TAKE ONE Medic in TABLET(S) TABLET(S) (1) e BY MOUTH BY MOUTH TABLET(S) DAILY. DAILY. BY MOUTH DAILY. latanoprost latanoprost No latanopros Joleen 0.005 % eye 0.005 % eye t 0.005 % [facility] drops drops eye drops dic INSTILL 1 INSTILL 1 INSTILL 1 Sports DROP IN DROP IN DROP IN Medici n BOTH EYES BOTH EYES BOTH EYES e EVERY NIGHT EVERY NIGHT EVERY AT BEDTIME AT BEDTIME NIGHT AT BEDTIME loratadine loratadine No loratadine Joleen 10 mg 10 mg 10 mg [facility] tablet TAKE tablet TAKE tablet dic ONE (1) ONE (1) TAKE ONE Sport s TABLET(S) TABLET(S) (1) Medic in BY MOUTH BY MOUTH TABLET(S) e ONCE A DAY. ONCE A DAY. BY MOUTH ONCE A DAY. losartan losartan No losartan Aza madina 100 mg 100 mg 100 mg [facility] tablet TAKE tablet TAKE tablet dic ONE (1) ONE (1) TAKE ONE Sport s TABLET(S) TABLET(S) (1) Medic in BY MOUTH BY MOUTH TABLET(S) e DAILY. DAILY. BY MOUTH DAILY. losartan losartan No losartan Aza madina 100 100 100 [facility] mg-hydrochl mg-hydrochl mg-hydroch dic orothiazide orothiazide lorothiazi Sports 12.5 mg 12.5 mg de 12.5 mg Med icin tablet TAKE tablet TAKE tablet e ONE (1) ONE (1) TAKE ONE TABLET(S) TABLET(S) (1) BY MOUTH BY MOUTH TABLET(S) ONCE A DAY. ONCE A DAY. BY MOUTH ONCE A DAY. metoprolol metoprolol No metoprolol Joleen tartrate tartrate tartrate [facility] 100 mg 100 mg 100 mg dic tablet TAKE tablet TAKE tablet Sports ONE (1) ONE (1) TAKE ONE Medic in TABLET(S) TABLET(S) (1) e BY MOUTH BY MOUTH TABLET(S) TWICE A TWICE A BY MOUTH DAY. DAY. TWICE A DAY. montelukast montelukast No montelukas Joleen 10 mg 10 mg t 10 mg [facility] tablet TAKE tablet TAKE tablet dic ONE (1) ONE (1) TAKE ONE Sport s TABLET(S) TABLET(S) (1) Medic in BY MOUTH BY MOUTH TABLET(S) e ONCE A DAY. ONCE A DAY. BY MOUTH ONCE A DAY. Myrbetriq Myrbetriq No Myrbetriq Joleen 25 mg 25 mg 25 mg [facility] tablet,exte tablet,exte tablet,ext dic nded nded ended Sports release release release Medici n TAKE ONE TAKE ONE TAKE ONE e (1) (1) (1) TABLET(S) TABLET(S) TABLET(S) BY MOUTH BY MOUTH BY MOUTH ONCE A DAY. ONCE A DAY. ONCE A DAY. omeprazole omeprazole No omeprazole [facility]en 20 mg 20 mg 20 mg [facility] capsule,del capsule,del capsule,de dic ayed ayed layed Sports release release release Medici n TAKE ONE TAKE ONE TAKE ONE e (1) (1) (1) CAPSULE(S) CAPSULE(S) CAPSULE(S) BY MOUTH BY MOUTH BY MOUTH ONCE A DAY. ONCE A DAY. ONCE A DAY. paroxetine paroxetine No paroxetine [facility]en 20 mg 20 mg 20 mg [facility] tablet TAKE tablet TAKE tablet dic ONE (1) ONE (1) TAKE ONE Sport s TABLET(S) TABLET(S) (1) Medic in BY MOUTH BY MOUTH TABLET(S) e ONCE A DAY. ONCE A DAY. BY MOUTH ONCE A DAY. propranolol propranolol No propranolo Joleen ER 160 mg ER 160 mg l ER 160 O r[facility]ope capsule,24 capsule,24 mg dic hr,extended hr,extended capsule,24 Sports release release hr,extende Med icin TAKE ONE TAKE ONE d release e (1) (1) TAKE ONE CAPSULE(S) CAPSULE(S) (1) BY MOUTH BY MOUTH CAPSULE(S) ONCE A DAY ONCE A DAY BY MOUTH BEFORE BEFORE ONCE A DAY MEAL. MEAL. BEFORE MEAL. tramadol 50 tramadol 50 No tramadol Joleen mg tablet mg tablet 50 mg Orth ope TAKE ONE TAKE ONE tablet dic (1) (1) TAKE ONE Sports TABLET(S) TABLET(S) (1) Medic in BY MOUTH BY MOUTH TABLET(S) e THREE TIMES THREE TIMES BY MOUTH A DAY A DAY THREE NEEDED. NEEDED. TIMES A DAY NEEDED. albuterol albuterol No albuterol [facility]en sulfate HFA sulfate HFA sulfate [facility] 90 90 HFA 90 dic mcg/actuati mcg/actuati mcg/actuat Sports on aerosol on aerosol ion Med icin inhaler inhaler aerosol e INHALE ONE INHALE ONE inhaler (1) PUFF BY (1) PUFF BY INHALE ONE MOUTH EVERY MOUTH EVERY (1) PUFF FOUR HOURS FOUR HOURS BY MOUTH NEEDED. NEEDED. EVERY FOUR HOURS NEEDED. amoxicillin amoxicillin No amoxicilli Joleen [phone] [facility] mg-potassiu mg-potassiu mg-potassi dic m m um Sports clavulanate clavulanate clavulanat Medicin 125 mg 125 mg e 125 mg e tablet TAKE tablet TAKE tablet ONE (1) ONE (1) TAKE ONE TABLET(S) TABLET(S) (1) BY MOUTH BY MOUTH TABLET(S) EVERY EVERY BY MOUTH TWELVE TWELVE EVERY HOURS WITH HOURS WITH TWELVE FOOD. FOOD. HOURS WITH FOOD. clonidine clonidine No clonidine Joleen HCl 0.1 mg HCl 0.1 mg HCl 0.1 mg [facility] tablet TAKE tablet TAKE tablet dic ONE (1) ONE (1) TAKE ONE Sport s TABLET(S) TABLET(S) (1) Medic in BY MOUTH BY MOUTH TABLET(S) e TWICE A TWICE A BY MOUTH DAY. DAY. TWICE A DAY. clotrimazol clotrimazol No clotrimazo [facility] e-betametha e-betametha le-betamet [facility] sone 1 sone 1 hasone 1 dic %-0.05 % %-0.05 % %-0.05 % Spo rts topical topical topical Medici n cream APPLY cream APPLY cream e TOPICALLY TOPICALLY APPLY TO FUNGAL TO FUNGAL TOPICALLY SKIN SKIN TO FUNGAL LESIONS LESIONS SKIN TWICE TWICE LESIONS DAILY. DAILY. TWICE DAILY. Constulose Constulose No Constulose Joleen 10 gram/15 10 gram/15 10 gram/15 [facility] mL oral mL oral mL oral dic solution solution solution Spo rts GIVE THIRTY GIVE THIRTY GIVE M edicin (30) ML(S) (30) ML(S) THIRTY e BY MOUTH BY MOUTH (30) ML(S) FOUR TIMES FOUR TIMES BY MOUTH DAILY. DAILY. FOUR TIMES DAILY. donepezil donepezil No donepezil [facility]en 10 mg 10 mg 10 mg [facility] tablet TAKE tablet TAKE tablet dic ONE (1) ONE (1) TAKE ONE Sport s TABLET(S) TABLET(S) (1) Medic in BY MOUTH BY MOUTH TABLET(S) e ONCE A DAY ONCE A DAY BY MOUTH AT BEDTIME. AT BEDTIME. ONCE A DAY AT BEDTIME. furosemide furosemide No furosemide J[facility]en 40 mg 40 mg 40 mg [facility] tablet TAKE tablet TAKE tablet dic ONE (1) ONE (1) TAKE ONE Sport s TABLET(S) TABLET(S) (1) Medic in BY MOUTH BY MOUTH TABLET(S) e ONCE A DAY. ONCE A DAY. BY MOUTH ONCE A DAY. hydralazine hydralazine No hydralazin J[facility]en 100 mg 100 mg e 100 mg [facility] tablet TAKE tablet TAKE tablet dic ONE (1) ONE (1) TAKE ONE Sport s TABLET(S) TABLET(S) (1) Medic in BY MOUTH BY MOUTH TABLET(S) e TWICE A TWICE A BY MOUTH DAY. DAY. TWICE A DAY. hydrochloro hydrochloro No hydrochlor Joleen thiazide thiazide othiazide Or thope 12.5 mg 12.5 mg 12.5 mg dic tablet TAKE tablet TAKE tablet Sports ONE (1) ONE (1) TAKE ONE Medic in TABLET(S) TABLET(S) (1) e BY MOUTH BY MOUTH TABLET(S) DAILY. DAILY. BY MOUTH DAILY. latanoprost latanoprost No latanopros Joleen 0.005 % eye 0.005 % eye t 0.005 % [facility] drops drops eye drops dic INSTILL 1 INSTILL 1 INSTILL 1 Sports DROP IN DROP IN DROP IN Medici n BOTH EYES BOTH EYES BOTH EYES e EVERY NIGHT EVERY NIGHT EVERY AT BEDTIME AT BEDTIME NIGHT AT BEDTIME loratadine loratadine No loratadine [facility] 10 mg 10 mg 10 mg [facility] tablet TAKE tablet TAKE tablet dic ONE (1) ONE (1) TAKE ONE Sport s TABLET(S) TABLET(S) (1) Medic in BY MOUTH BY MOUTH TABLET(S) e ONCE A DAY. ONCE A DAY. BY MOUTH ONCE A DAY. losartan losartan No losartan Aza madina 100 mg 100 mg 100 mg [facility] tablet TAKE tablet TAKE tablet dic ONE (1) ONE (1) TAKE ONE Sport s TABLET(S) TABLET(S) (1) Medic in BY MOUTH BY MOUTH TABLET(S) e DAILY. DAILY. BY MOUTH DAILY. losartan losartan No losartan Aza madina 100 100 100 [facility] mg-hydrochl mg-hydrochl mg-hydroch dic orothiazide orothiazide lorothiazi Sports 12.5 mg 12.5 mg de 12.5 mg Med icin tablet TAKE tablet TAKE tablet e ONE (1) ONE (1) TAKE ONE TABLET(S) TABLET(S) (1) BY MOUTH BY MOUTH TABLET(S) ONCE A DAY. ONCE A DAY. BY MOUTH ONCE A DAY. metoprolol metoprolol No metoprolol Joleen tartrate tartrate tartrate [place] 100 mg 100 mg 100 mg dic tablet TAKE tablet TAKE tablet Sports ONE (1) ONE (1) TAKE ONE Medic in TABLET(S) TABLET(S) (1) e BY MOUTH BY MOUTH TABLET(S) TWICE A TWICE A BY MOUTH DAY. DAY. TWICE A DAY. montelukast montelukast No montelukas Joleen 10 mg 10 mg t 10 mg [facility] tablet TAKE tablet TAKE tablet dic ONE (1) ONE (1) TAKE ONE Sport s TABLET(S) TABLET(S) (1) Medic in BY MOUTH BY MOUTH TABLET(S) e ONCE A DAY. ONCE A DAY. BY MOUTH ONCE A DAY. Myrbetriq Myrbetriq No Myrbetriq Joleen 25 mg 25 mg 25 mg [facility] tablet,exte tablet,exte tablet,ext dic nded nded ended Sports release release release Medici n TAKE ONE TAKE ONE TAKE ONE e (1) (1) (1) TABLET(S) TABLET(S) TABLET(S) BY MOUTH BY MOUTH BY MOUTH ONCE A DAY. ONCE A DAY. ONCE A DAY. Vital Signs Vital Name Observation Time Observation Value Comments Source Height 2021-12-22 00:00:00 60 [in_i] [facility] BMI (Body Mass 2021-12-22 00:00:00 43 kg/m2 [facility] Index) Sports Medicine Body Weight 2021-12-22 00:00:00 220 [lb_av] [facility] Height 2021-12-01 00:00:00 60 [in_i] [facility] BMI (Body Mass 2021-12-01 00:00:00 43 kg/m2 [facility] Index) Sports Medicine Body Weight 2021-12-01 00:00:00 220 [lb_av] [facility] Procedures Procedure Date / Time Performed Performing Clinician [facility] e XR, wrist, 3 or more 2021-12-22 00:00:00 [facility] view Sports Medicine XR, wrist, 3 or more 2021-12-01 00:00:00 [place] [facility] Encounters Start End Encounter Admission Attending Care Care Encounter Source Date/Time Date/Time Type Type Clinicians Facility Department ID 2021-12-22 2021-12-22 Outpatient FOG_Luo[facility]Ran AOSM AOSM [id number] 1227-20 Joleen 05:09:00 05:09:00 Alex [id number] Orthop e dic Sports Medicin e 2021-12-22 2021-12-22 Dwayne DAMONSM [place] - Ortho [id number] 00:00:00 00:00:00 MD Jose Ramon: Cristin myers [address], [facility], [place] [id number] , Ph. [phone] 2021-12-22 2021-12-22 Outpatient Dwayne AlbrightSM AOSM [id number] 00:00:00 00:00:00 Y [id number] 2021-12-20 Outpatient [facility]OG_Luo[facility]Ran AOSM AOSM 632 1227-20 Joleen 01:52:00 01:52:00 Alex [id number] Orthop e dic Sports Medicin e 2021-12-14 2021-12-14 Outpatient [facility]OG_Luo_Ran AOSM AOSM 632 1227-20 Joleen 08:12:00 08:12:00 Alex [id number] Orthop e dic Sports Medicin e 2021-12-13 2021-12-13 Outpatient FOG_Luo_Ran AOSM AOSM 632 1227-20 Joleen 05:31:00 05:31:00 Alex [id number] Orthop e dic Sports Medicin e 2021-12-09 2021-12-09 Outpatient [facility]OG_Luo[facility]Ran AOSM AOSM 632 1227-20 Joleen 06:03:00 06:03:00 Alex [id number] Orthop e dic Sports Medicin e 2021-12-09 2021-12-09 Outpatient Dwayne AlbrightSM AOSM [id number] 00:00:00 00:00:00 Y [id number] 2021-12-09 2021-12-09 Dwayne Y AOSM [place] - Ortho [id number] Joleen 00:00:00 00:00:00 MD Jose Ramon: Cristin Stuart rthope [address] [facility] [place] [id number] , Ph. [id number] 2021-12-06 2021-12-06 Outpatient FOG_Luo_Ran AOSM AOSM 632 1227-20 Joleen 12:29:00 12:29:00 dy_ [id number] Orthop e dic Sports Medicin e 2021-12-01 2021-12-01 Outpatient FOG_Luo_Ran AOSM AOSM 632 1227-20 Joleen 05:58:00 05:58:00 dySLIME [id number] Orthop e dic Sports Medicin e 2021-12-01 2021-12-01 Outpatient Dwayne Albright AOSM AOSM [id number] 00:00:00 00:00:00 Y [id number] 2021-12-01 2021-12-01 Outpatient Dwayne Albright AOSM AOSM [id number] 00:00:00 00:00:00 Y [id number] 2021-12-01 2021-12-01 Dwayne Y AOSM [place] - Ortho [id number] Joleen 00:00:00 00:00:00 MD Jose Ramon: Cristin hardene [address] [facility] [place] [id number] , Ph. [phone] 2021-11-28 2021-11-28 Outpatient FOG_Luo_Ran AOSM AOSM 632 1227-20 Joleen 02:27:00 02:27:00 golden_ [id number] Orthop e dic Sports Medicin e 2021-11-24 2021-11-24 Outpatient FOG_Luo_Ran AOSM AOSM 632 1227-20 Joleen 01:17:00 01:17:00 Alex [id number] Orthop e dic Sports Medicin e 2021-11-21 2021-11-21 Outpatient FOG_Luo_Ran AOSM AOSM 632 1227-20 Joleen 05:17:00 05:17:00 dy_ [id number] Orthop e dic Sports Medicin e 2021-11-18 2021-11-18 Outpatient FOG_Luo_Ran AOSM AOSM 632 1227-20 Joleen 10:48:00 10:48:00 dy_ [id number] Orthop e dic Sports Medicin e 2021-11-14 2021-11-14 Outpatient FOG_Luo_Ran AOSM AOSM [id number] 1227-20 Joleen 03:57:00 03:57:00 dy_ [id number] Orthop e dic Sports Medicin e 2021-11-10 2021-11-10 Outpatient FOG_Luo_Ran AOSM AOSM 632 1227-20 Joleen 10:27:00 10:27:00 golden_ [id number] Orthop e dic Sports Medicin e 2021-11-10 2021-11-10 Dwayne Y AOSM [place] - Ortho [id number] Joleen 00:00:00 00:00:00 MD Jose Ramon: Cristin hardene [address], [facility] [place], [place] [address] , Ph. [phone] 2021-11-10 2021-11-10 Outpatient Dwayne Albright AOSM AOSM [id number] 00:00:00 00:00:00 Y [id number] 2021-11-09 2021-11-09 Outpatient FOG_Gharbao AOSM AOSM 632 1227-20 Joleen 07:11:00 07:11:00 ui_Chacho [id number] Orth ope dic Sports Medicin e Results This patient has no known results.
[2023-04-28 23:44] LABS: Absolute Lymphocytes (CBC) 1.3 K/uL (0.7-4.9); Hematocrit 36.4 % (36.0-45.0); Lymphocytes % 11.8 % (15.3-44.8); MPV 7.6 fL (7.6-11.3); Platelets 369 thou/uL (152-406); RBC Red Blood Cell Count 4.28 M/uL (3.86-4.86)
[2023-04-29 00:08] LABS: Magnesium 2.7 mg/dL (1.6-2.4); Troponin High Sensitivity 11.6 pg/mL (<58.9)
[2023-04-29 00:18] LABS: Specific Gravity 1.013 (1.005-1.030); Urine Bacteria None Seen /HPF (<20); Urine Bilirubin NEGATIVE (Negative); Urine Blood Negative (Negative); Urine Clarity Clear (Clear); Urine Color Colorless (Yellow); Urine Glucose NEGATIVE (Negative); Urine Protein TRACE (Negative); Urine RBC <5 /HPF (None Seen); Urine Urobilinogen Normal (Normal)
--- NOTE | 2023-04-29 01:23 | ER ---
Nurse's Notes [facility] Name: Renetta Ward Age: 87 yrs Sex: Female : 1935 Arrival Date: 04/28/2023 Time: 22:41 Bed 19 Private MD: Diagnosis: Hallucinations, unspecified;Alzheimer's disease, unspecified Presentation: 04/28 22:49 Chief complaint: EMS states: She was here today and got diagnose with pneumonia. The ha1 family members called because her mental status seems to be more alter than her normal. she is having hallucinations. She has Alzheimer and not taking any medication for it. Coronavirus screen: Vaccine status:. Ebola Screen: No symptoms or risks identified at this time. Initial Sepsis Screen: Does the patient meet any 2 criteria? No. Patient's initial sepsis screen is negative. Does the patient have a suspected source of infection? No. Patient's initial sepsis screen is negative. Risk Assessment: Do you want to hurt yourself or someone else? Patient reports no desire to harm self or others. Onset of symptoms was April 28, 2023. 22:49 Method Of Arrival: EMS: [facility] ha1 22:49 Acuity: LISBETH 3 ha1 Triage Assessment: 22:49 General: Appears comfortable, Behavior is calm, cooperative. General: Family member ha1 reports alter mental status . Pain: Denies pain. Neuro: Level of Consciousness is awake, Oriented to person, situation. Neuro:. Cardiovascular: Capillary refill < 3 seconds Patient's skin is warm and dry. Respiratory: Airway is patent Respiratory effort is even, unlabored, Respiratory pattern is regular, symmetrical. GI: Abdomen is round non-distended. : No signs and/or symptoms were reported regarding the genitourinary system. Derm: Skin is moist, Skin is normal. Musculoskeletal: Circulation, motion, and sensation intact. Range of motion: intact in all extremities. Historical: - Allergies: 22:56 No Known Allergies; ha1 - PMHx: 22:56 acid reflux; Hypercholesterolemia; Hypertension; Alzheimer's disease; ha1 - Immunization history:: Adult Immunizations not up to date. - Social history:: Smoking status: Patient denies any tobacco usage or history of. Screenin:50 [facility] ED Fall Risk Assessment (Adult) History of falling in the last 3 months, ha1 including since admission Confusion or Disorientation Yes (5 pts) Intoxicated or Sedated No (0 pts) Impaired Gait Yes (1 pt) Mobility Assist Device Used Yes (1 pt) Altered Elimination Yes (1 pt) Score/Fall Risk Level 3 or more points = High Risk Oriented to surroundings, Maintained a safe environment, Educated pt \T\ family on fall prevention, incl call for assistance when getting out of bed, Hourly rounding (assess needs \T\ fall precautionary measures) done. 22:59 Abuse screen: Denies threats or abuse. Denies injuries from another. Nutritional ha1 screening: No deficits noted. Tuberculosis screening: No symptoms or risk factors identified. Assessment: 22:49 Reassessment: see triage assessment. ha1 23:50 Reassessment: Patient and/or family updated on plan of care and expected duration. Pain ha1 level reassessed. 23:50 Respiratory: Airway is patent Respiratory effort is even, unlabored, Respiratory ha1 pattern is regular, symmetrical. Musculoskeletal: Circulation, motion, and sensation intact. 04/29 00:50 Reassessment: EYES CLOSED. Respiratory: Airway is patent Respiratory effort is even, ha1 unlabored, Respiratory pattern is regular, symmetrical. 01:54 Reassessment: Patient and/or family updated on plan of care and expected duration. Pain ha1 level reassessed. General: Appears comfortable, Behavior is cooperative. Vital Signs: 04/28 22:49 BP 175 / 80; Pulse 70; Resp 18 S; Temp 98.4(O); Pulse Ox 94% on R/A; Weight 85 kg; ha1 Height 4 ft. 8 in. ; 23:28 BP 208 / 70; Pulse 81; Resp 17 S; Pulse Ox 95% on R/A; ha1 23:45 BP 197 / 85; Pulse 82; Resp 19 S; Pulse Ox 94% ; ha1 04/29 00:50 BP 166 / 62; Pulse 86; Resp 17 S; Pulse Ox 95% on R/A; ha1 01:53 BP 158 / 84; Pulse 76; Resp 17 S; Pulse Ox 94% on R/A; ha1 04/28 22:49 Body Mass Index 42.01 (85.00 kg, 142.24 cm) [facility] ED Course: 04/28 22:49 Patient arrived in ED. 1 22:49 Bey, Yojana, RN is Primary Nurse. ha1 22:49 Patient has correct armband on for positive identification. Placed in gown. Bed in low ha1 position. Call light in reach. Side rails up X2. Adult w/ patient. 22:50 Arm band placed on right wrist. EKG completed in triage. Results shown to MD. ha1 22:56 Triage completed. ha1 22:57 Anita Hendrickson FNP-C [facility] kb 22:57 Markell Thurston MD is Attending Physician. kb 22:58 Missed attempt(s): 20 gauge in right antecubital area. ha1 23:15 Missed attempt(s): 22 gauge in left forearm. Bleeding controlled, band aid applied, ha1 catheter tip intact. 23:36 Basic Metabolic Panel Sent. ha1 23:36 CBC with Diff Sent. ha1 23:36 Magnesium Sent. ha1 23:36 NT PRO-BNP Sent. ha1 23:36 Troponin HS Sent. ha1 23:54 CT Chest Wo Con In Process Unspecified. EDMS 23:58 Straight cath inserted, using sterile technique, 16 Fr. Specimen obtained. Returned ha1 clear yellow urine. Patient tolerated well. 04/29 00:07 Urinalysis w/ reflexes Sent. jr12 00:25 Inserted saline lock: 22 gauge in right wrist, using aseptic technique. bp 01:55 No provider procedures requiring assistance completed. IV discontinued, intact, ha1 bleeding controlled, No redness/swelling at site. Pressure dressing applied. 01:56 Provided Education on: FOLLOWING UP WITH PCP. S AND S OF ALZHEIMER DISEASE . ha1 Administered Medications: No medications were administered Medication: 00:22 VIS not applicable for this client. ha1 Outcome: 01:23 Discharge ordered by . kb 01:55 Discharged to home via ambulance, with family, ha1 01:55 Condition: stable 01:55 Discharge instructions given to patient, family, Instructed on discharge instructions, follow up and referral plans. Demonstrated understanding of instructions, follow-up care, 01:57 Patient left the ED. ha1 Signatures: Dispatcher [employer] EDMS Anita Hendrickson, Sonny Harris RN RN bp Ayala, Heidy, RN RN ha1 Guerda Hopper jr12
--- NOTE | 2023-04-29 01:23 | EDPHYS ---
Physician Documentation [facility] Name: Renetta Ward Age: 87 yrs Sex: Female : 1935 Arrival Date: 04/28/2023 Time: 22:41 Bed 19 Private MD: ED Physician Markell Thurston HPI: 04/29 00:53 This 87 yrs old Female presents to ER via EMS with complaints of Altered kb mental status. 00:53 Patient is a 87-year-old female with a history of hypercholesterolemia, hypertension, kb GERD and Alzheimer's. Daughter called 911 to finger to the emergency room for evaluation tonight because patient was being more agitated than normal. States patient has been having hallucinations over the past several days, she thought it was from her medications so she stopped them 2 days ago and symptoms got worse after that. Patient was seen this morning in this ED diagnosed with pneumonia and sent home with antibiotics. Daughter denies patient having cough, fever, shortness of breath, nausea, vomiting, diarrhea.. Historical: - Allergies: 04/28 22:56 No Known Allergies; ha1 - PMHx: 22:56 acid reflux; Hypercholesterolemia; Hypertension; Alzheimer's disease; ha1 - Immunization history:: Adult Immunizations not up to date. - Social history:: Smoking status: Patient denies any tobacco usage or history of. ROS: 23:13 Constitutional: Negative for fever, chills, and weight loss, kb 23:13 Unable to obtain ROS due to baseline dementia, Exam: 23:13 Constitutional: This is a well developed, well nourished patient who is awake, alert, kb and in no acute distress. Head/Face: Normocephalic, atraumatic. ENT: Moist Mucous membranes Cardiovascular: Regular rate Respiratory: Respirations even and unlabored. No increased work of breathing. Talking in full sentences Abdomen/GI: Soft, non-tender. No distention Skin: Warm, dry with normal turgor. Normal color. MS/ Extremity: Pulses equal, no cyanosis. Neurovascular intact. Full, normal range of motion. 23:13 ECG was reviewed by the Attending Physician. 23:13 Neuro: Exam negative for acute changes, Vital Signs: 22:49 BP 175 / 80; Pulse 70; Resp 18 S; Temp 98.4(O); Pulse Ox 94% on R/A; Weight 85 kg; ha1 Height 4 ft. 8 in. ; 23:28 BP 208 / 70; Pulse 81; Resp 17 S; Pulse Ox 95% on R/A; ha1 23:45 BP 197 / 85; Pulse 82; Resp 19 S; Pulse Ox 94% ; ha1 04/29 00:50 BP 166 / 62; Pulse 86; Resp 17 S; Pulse Ox 95% on R/A; ha1 01:53 BP 158 / 84; Pulse 76; Resp 17 S; Pulse Ox 94% on R/A; ha1 04/28 22:49 Body Mass Index 42.01 (85.00 kg, 142.24 cm) MDM: 04/28 22:57 Patient medically screened. kb 23:14 Differential Diagnosis: electrolyte abnormality, pneumonia, UTI, volume depletion, kb advancing alzheimers. Data reviewed: vital signs, nurses notes. Historians other than the Patient: EMS: [facility]. Family Member: daughter. 04/29 00:55 ED course: Diagnostics from this morning's visit reviewed. Labs repeated and improved kb from this morning (CBC, creatinine, BNP). CT chest ordered to get a more in-depth review to determine infection versus edema. Awaiting CT results at this time. 01:13 Counseling: I had a detailed discussion with the patient and/or guardian regarding the kb historical points, exam findings, and any diagnostic results supporting the discharge/admit diagnosis, lab results, radiology results, the need for outpatient follow up, a family practitioner, to return to the emergency department if symptoms worsen or persist or if there are any questions or concerns that arise at home. ED course: CT chest impression mild interstitial pulmonary edema. I reviewed CT chest from 12/2021, which also showed mild interstitial edema. Patient's O2 sat 95% on room air, patient in no respiratory distress, respirations even unlabored, lungs clear bilaterally. Patient stable for discharge to follow-up with Dr. Nash on outpatient basis.. 04/28 23:12 Order name: Basic Metabolic Panel; Complete Time: 00:13 kb 04/28 23:12 Order name: CBC with Diff; Complete Time: 00:00 kb 04/28 23:12 Order name: Magnesium; Complete Time: 00:13 kb 04/28 23:12 Order name: NT PRO-BNP; Complete Time: 00:13 kb 04/28 23:12 Order name: Troponin HS; Complete Time: 00:13 kb 04/28 23:15 Order name: Urinalysis w/ reflexes; Complete Time: 00:19 kb 04/28 23:12 Order name: CT Chest Wo Con kb 04/28 23:12 Order name: EKG; Complete Time: 23:13 kb 04/28 23:12 Order name: Cardiac monitoring; Complete Time: 23:35 kb 04/28 23:12 Order name: EKG - Nurse/Tech; Complete Time: 23:15 kb 04/28 23:12 Order name: IV Saline Lock; Complete Time: 00:27 kb 04/28 23:12 Order name: Labs collected and sent; Complete Time: 23:36 kb 04/28 23:12 Order name: O2 Per Protocol; Complete Time: 23:36 kb 04/28 23:12 Order name: O2 Sat Monitoring; Complete Time: 23:36 kb EC/25 23:13 Rate is 76 beats/min. Rhythm is regular. QRS Purdys is Normal. [place] interval is normal at kb 168 msec. QRS interval is normal at 86 msec. QT interval is normal at 445 msec. Administered Medications: No medications were administered Disposition: 04/29 06:55 Co-signature as Attending Physician, Markell Thurston MD I agree with the assessment sp4 and plan of care. I reviewed the patient's care provided by the Advanced Practice Provider and agree with the diagnosis and treatment plan. Disposition Summary: 04/29/23 01:23 Discharge Ordered Notes: Location: Home kb Condition: Stable kb Diagnosis - Hallucinations, unspecified kb - Alzheimer's disease, unspecified kb Followup: kb - With: Emergency Department - When: As needed - Reason: Worsening of condition Followup: kb - With: Private Physician - When: 2 - 3 days - Reason: Recheck today's complaints, Continuance of care, Re-evaluation by your physician Discharge Instructions: - Discharge Summary Sheet kb - Alzheimer's Disease Caregiver Guide, [id number] kb Forms: - Medication Reconciliation Form kb - Thank You Letter kb - Antibiotic Education kb - Prescription Opioid Use kb - Patient Portal Instructions kb - Leadership Thank You Letter kb Signatures: Dispatcher [employer] Anita Goldberg, JASON-C JASON-Yojana Almanzar RN RN ha1 Markell Thurston MD MD sp4 Corrections: (The following items were deleted from the chart) 01:23 01:23 Dementia in other diseases classified elsewhere with behavioral disturbance kb kb
[2023-04-29 02:16] VITALS: TEMP 98.4
[2023-04-29 02:31] VITALS: BP 158/84; O2SAT 94
--- NOTE | 2023-04-30 13:40 | RAD REPORT ---
EXAM DESCRIPTION: CT - Thorax Wo Con - 04/29/2023 6:37 am CLINICAL HISTORY: Eval for edema vs pna TECHNIQUE: Contiguous axial images obtained through the chest without IV contrast. Coronal and sagit fatemeh reformatted images provided. This exam was performed according to our departmental dose-optimization program, which includes autom ated exposure control, adjustment of the mA and/or kV according to patient size and/or use of iterati ve reconstruction technique. COMPARISON: December 2021 FINDINGS: Lungs: Perihilar hazy and interstitial airspace disease, with mild thickening of interlobu lar septal lines, most consistent with interstitial pulmonary edema. Images are degraded by respiratory motion artifact. No focal consolidation. Hyperinflation, consistent with COPD. Pleura: No effusion. No pneumothorax. Heart and pericardium: The heart is normal in size. No pericardial effusion. Mediastinum and paolo: No pathologically enlarged lymph nodes. Lower neck and chest wall: Unremarkable Vessels: Atherosclerotic peripheral vascular disease. Upper abdomen: Unremarkable Bones: Compression deformity of T11, likely chronic. IMPRESSION: 1. Perihilar hazy and interstitial airspace disease, with mild thickening of interlobu lar septal lines, most consistent with interstitial pulmonary edema. 2. COPD. 3. Compression deformity of T11, likely chronic. Electronically signed by: Michael Cooper MD 04/29/2023 12:08 AM DIE CUTTER OPERATOR Due to temporary technical issues with the PACS/Fluency reporting system, reports are being signed by the in house radiologist without review as a courtesy to ensure prompt reporting. The interpreting r adiologist is fully responsible for the content of the report.
--- NOTE | 2023-04-30 16:52 | EKG ---
Test Date: 2023-04-28 Test Time: 23:02:24 Instrument Assembly Supervisor: RONNY MEASUREMENT RESULTS: Intervals: Rate: 76 IL: 168 QRSD: 86 QT: 396 QTc: 445 Gamaliel: P: 67 IL: 168 QRS: 7 T: 47 INTERPRETIVE STATEMENTS: Normal sinus rhythm Normal ECG Compared to ECG 04/28/2023 11:45:53 Left ventricular hypertrophy no longer present Electronically Signed On 04-30-23 16:51:40 MEAT DRESSER by Jose Moody
== END 2023-04-29 01:57 | disposition home or self-care (01) ==
LOC: ER 22:41
DX: R44.3 Hallucinations, unspecified (principal); G30.9 Alzheimer's disease, unspecified; F02.80 Dementia in other diseases classified elsewhere, unspecified severity, without behavioral disturbance, psychotic disturbance, mood disturbance, and anxiety; I10 Essential (primary) hypertension
CPT/HCPCS: 36415; 51702; 71250; 80048; 81001; 83735; 83880; 84484; 85025; 93005; 99284

== ENCOUNTER 2023-07-07 15:30 | Inpatient (IN) | payer OTHER ==
--- NOTE | 2023-07-07 16:24 | RAD REPORT ---
EXAM DESCRIPTION: CT - Head Brain Wo Cont - 07/07/2023 4:05 pm CLINICAL HISTORY: WEAKNESS Headache, drowsiness COMPARISON: Head Brain Wo Cont dated 10/07/2016 TECHNIQUE: All CT scans are performed using dose optimization technique as appropriate and may inclu de automated exposure control or mA/KV adjustment according to patient size. FINDINGS: No intracranial hemorrhage, hydrocephalus or extra-axial fluid collection.Moderate general ized brain atrophy is present with mild periventricular and deep white matter chronic microvascular i schemic changes.No areas of brain edema or evidence of midline shift. Moderate mucoperiosteal thickening of the right maxillary antrum. The paranasal sinuses and mastoids are otherwise clear. The calvarium is intact. IMPRESSION: No acute intracranial abnormality.
--- NOTE | 2023-07-07 16:26 | RAD REPORT ---
EXAM DESCRIPTION: RAD - Chest Single View - 07/07/2023 4:01 pm CLINICAL HISTORY: AMS Chest pain. COMPARISON: Chest Single View dated 04/28/2023; Chest Pa And Lat (2 Views) dated 03/19/2023; Chest P a And Lat (2 Views) dated 11/30/2021; Chest Single View dated 10/07/2016 FINDINGS: Portable technique limits examination quality. Mild interstitial pulmonary edema. The heart is mildly prominent. No displaced fractures. IMPRESSION: Mild CHF.
[2023-07-07 16:46] LABS: SARS-CoV-2 Antigen Rapid Res Negative (Negative)
[2023-07-07 17:18] LABS: Absolute Lymphocytes (CBC) 1.6 K/uL (0.7-4.9); Hematocrit 41.3 % (36.0-45.0); Lymphocytes % 14.7 % (15.3-44.8); MCV 90.1 fL (80-100); MPV 7.8 fL (7.6-11.3); Platelets 309 thou/uL (152-406); RBC Red Blood Cell Count 4.58 M/uL (3.86-4.86)
[2023-07-07 17:22] LABS: Protime INR 1.11
[2023-07-07 17:34] LABS: Albumin 3.5 g/dL (3.4-5.0); Bilirubin Total 0.3 mg/dL (0.2-1.0); Protein, Total 8.1 g/dL (6.4-8.2)
[2023-07-07 17:36] LABS: Potassium 8.6 mEq/L (3.5-5.1); Troponin High Sensitivity 190.4 pg/mL (<58.9)
[2023-07-07 17:40] LABS: Renal Epithelial <5 /HPF (None Seen); Specific Gravity 1.011 (1.005-1.030); Transitional Epithelial <5 /HPF (None Seen); Urine Bacteria <20 /HPF (<20); Urine Bilirubin NEGATIVE (Negative); Urine Blood Negative (Negative); Urine Clarity Turbid (Clear); Urine Color Colorless (Yellow); Urine Glucose NEGATIVE (Negative); Urine Mucus Slight /HPF (None Seen); Urine Protein TRACE (Negative); Urine RBC <5 /HPF (None Seen); Urine Urobilinogen Normal (Normal)
[2023-07-07] MEDS ORDERED: ALBUTEROL 2.5 MG/3 ML NEB SOL ONE (17:41)
[2023-07-07] MEDS ORDERED: SOD POLYSTYREN SUL 15 GM/60 ML UCUP ONE (17:41)
[2023-07-07] MEDS ORDERED: FUROSEMIDE 40 MG/4 ML VIAL ONE ×2 (17:41→18:52)
[2023-07-07] MEDS ORDERED: INSULIN REGULAR (HUMAN) 100 UNIT/ML ONE (17:42)
[2023-07-07] MEDS ORDERED: CALCIUM GLUCONATE 1 GM IVPB 2 GM/100 ML BAG IV ONE (17:43)
[2023-07-07] MEDS ORDERED: D50W 25 GM/50 ML SYRINGE IV ONE (17:43)
--- NOTE | 2023-07-07 18:02 | ER ---
Nurse's Notes [facility] Name: Renetta Ward Age: 87 yrs Sex: Female : 1935 Arrival Date: 07/07/2023 Time: 15:30 Bed 6 Private MD: Diagnosis: Acute renal injury, hyperkalemia, generalized weakness Presentation: 07/07 15:46 Chief complaint: Patient's son or daughter states: Pt started with bilateral leg tl4 weakness yesterday. Today pt started with right arm weakness, headache and visual changes. Pt states she is weak all over. Daughter unsure if pt is able to eat. 15:51 Coronavirus screen: Vaccine status: Patient reports receiving the 2nd dose of the covid tl4 vaccine. Ebola Screen: No symptoms or risks identified at this time. Initial Sepsis Screen: Does the patient meet any 2 criteria? No. Patient's initial sepsis screen is negative. Does the patient have a suspected source of infection? No. Patient's initial sepsis screen is negative. Risk Assessment: Do you want to hurt yourself or someone else? Patient reports no desire to harm self or others. Onset of symptoms was July 06, 2023. 15:51 Method Of Arrival: EMS: [facility] tl4 15:51 Acuity: LISBETH 2 tl4 Triage Assessment: 16:53 General: Appears uncomfortable, Behavior is calm, cooperative. Pain: Denies pain. EENT: tl4 No deficits noted. No signs and/or symptoms were reported regarding the EENT system. Neuro: Reports headache generalized weakness generalized weakness. Cardiovascular: No deficits noted. Denies chest pain, diaphoresis, fatigue, lightheadedness, nausea, palpitations, syncope. Respiratory: No deficits noted. Denies cough, shortness of breath. GI: No deficits noted. No signs and/or symptoms were reported involving the gastrointestinal system. Patient currently denies diarrhea, nausea, vomiting. : No deficits noted. No signs and/or symptoms were reported regarding the genitourinary system. Derm: No deficits noted. No signs and/or symptoms reported regarding the dermatologic system. Historical: - Allergies: 15:54 Promethazine; tl4 - PMHx: 15:54 acid reflux; Alzheimer's disease; Hypercholesterolemia; Hypertension; tl4 - Immunization history:: Adult Immunizations unknown. - Social history:: Smoking status: Patient denies any tobacco usage or history of. Screenin:56 [facility] ED Fall Risk Assessment (Adult) History of falling in the last 3 months, tl4 including since admission No falls in past 3 months (0 pts) Confusion or Disorientation No (0 pts) Intoxicated or Sedated No (0 pts) Impaired Gait No (0 pts) Mobility Assist Device Used No (0 pt) Altered Elimination No (0 pt) Score/Fall Risk Level 0 - 2 = Low Risk Oriented to surroundings, Maintained a safe environment, Educated pt \T\ family on fall prevention, incl call for assistance when getting out of bed, Assessed \T\ reinforced patient's understanding of fall precautions, Provided non-skid footwear, Hourly rounding (assess needs \T\ fall precautionary measures) done, Used ambulatory aids as needed (educated on \T\ assisted with), Used gait belt as appropriate. Abuse screen: Denies threats or abuse. Denies injuries from another. Nutritional screening: No deficits noted. Tuberculosis screening: No symptoms or risk factors identified. Assessment: 16:56 Reassessment: No changes from previously documented assessment. Patient and/or family tl4 updated on plan of care and expected duration. Pain level reassessed. Patient is alert, oriented x 3, equal unlabored respirations, skin warm/dry/pink. 18:58 Reassessment: Patient and/or family updated on plan of care and expected duration. Pain tl4 level reassessed. Patient is alert, oriented x 3, equal unlabored respirations, skin warm/dry/pink. Patient denies pain at this time. Patient states feeling better. 19:37 Reassessment: Patient appears in no apparent distress at this time. No changes from tm6 previously documented assessment. Patient and/or family updated on plan of care and expected duration. Pain level reassessed. Patient is alert, oriented x 3, equal unlabored respirations, skin warm/dry/pink. 20:17 Reassessment: lever miller at bedside. tm6 20:24 Reassessment: Patient appears in no apparent distress at this time. No changes from km8 previously documented assessment. Patient and/or family updated on plan of care and expected duration. Pain level reassessed. Patient is alert, oriented x 3, equal unlabored respirations, skin warm/dry/pink. 21:55 Reassessment: Patient appears in no apparent distress at this time. No changes from tm6 previously documented assessment. Patient and/or family updated on plan of care and expected duration. Pain level reassessed. Patient is alert, oriented x 3, equal unlabored respirations, skin warm/dry/pink. Vital Signs: 15:51 BP 179 / 70; Pulse 58; Resp 17; Temp 98.5(O); Pulse Ox 95% on R/A; Weight 75.75 kg (M); tl4 Height 4 ft. 8 in. (R); 16:30 BP 192 / 87; Pulse 58; Resp 17; Pulse Ox 97% on R/A; tl4 17:02 BP 191 / 81; Pulse 54; Resp 17; Pulse Ox 96% on R/A; tl4 17:30 BP 206 / 74; Pulse 62; Resp 20; Pulse Ox 97% on R/A; tl4 18:02 BP 169 / 71; Pulse 53; Resp 15; Pulse Ox 97% on R/A; tl4 18:30 BP 182 / 64; Pulse 58; Resp 15; Pulse Ox 96% on R/A; tl4 19:10 BP 182 / 64; Pulse 56; Resp 18; Pulse Ox 99% ; tl4 19:37 BP 158 / 66; Pulse 58; Pulse Ox 93% on R/A; tm6 20:00 BP 161 / 63; Pulse 59; Resp 16; Pulse Ox 95% on R/A; km8 20:15 BP 162 / 62; Pulse 50; Resp 17; Pulse Ox 96% on R/A; km8 21:55 BP 149 / 76; Pulse 60; Pulse Ox 96% on R/A; tm6 22:30 BP 129 / 81; Pulse 61; Resp 16; Pulse Ox 96% on R/A; km8 15:51 Body Mass Index 37.44 (75.75 kg, 142.24 cm) tl4 Vitals: 16:49 Cardiac Rhythm Assessment Regular Sinus markos. tl4 Cecile Coma Score: 16:50 Eye Response: spontaneous(4). Motor Response: obeys commands(6). Verbal Response: tl4 oriented(5). Total: 15. ED Course: 15:37 Patient arrived in ED. eb 15:42 Nina Oviedo MD is Attending Physician. sp3 15:45 Jose Antonio Myrick is Primary Nurse. tl4 15:53 Triage completed. tl4 15:54 Arm band placed on Patient placed in an exam room, on a stretcher. tl4 16:02 Chest Single View XRAY In Process Unspecified. EDMS 16:07 CT Head Brain wo Cont In Process Unspecified. EDMS 16:25 SARS RAPID Sent. tl4 16:25 Flu Sent. tl4 16:36 SARS RAPID Sent. ld1 16:36 Flu Sent. ld1 16:36 Urinalysis w/ reflexes Sent. ld1 16:57 Patient has correct armband on for positive identification. Placed in gown. Bed in low tl4 position. Call light in reach. Side rails up X2. Adult w/ patient. Provided Education on: ed process. Client placed on continuous cardiac and pulse oximetry monitoring. NIBP monitoring applied. front desk monitor on. Door closed. Lights dimmed. Moved to private room. Warm blanket given. 16:57 No provider procedures requiring assistance completed. Maintain EMS IV. Dressing tl4 intact. Good blood return noted. Site clean \T\ dry. Gauge \T\ site: 20g right forearm. 17:02 Blood Culture Adult (2) Sent. ld1 17:02 Lactate w/ 2H reflex if indic. Sent. ld1 17:02 Inserted saline lock: 20 gauge in left antecubital area, using aseptic technique. Blood ld1 collected. 18:00 Jah Tolbert MD is Hospitalizing Provider. sp3 18:49 BMP Sent. tl4 20:17 Teddy Nash MD is Hospitalizing Provider. rn 20:24 Patient admitted, IV remains in place. km8 Administered Medications: 18:05 Drug: Calcium Gluconate IVPB 2 grams IVPB once over 60 mins; (mix in NS 100 mL) Route: tl4 IVPB; Rate: 50 ml/hr; Infused Over: 60 mins; Site: right forearm; Delivery: Primary tubing; 18:47 Follow up: Response: No adverse reaction; IV Status: Completed infusion; IV Intake: tl4 200ml 18:06 Drug: Insulin Regular Human IVP 10 units IVP once {Co-Signature: ld1 (Mita Pettit tl4 RN).} Route: IVP; Site: left antecubital; 18:49 Follow up: Response: No adverse reaction tl4 18:07 Drug: D50W IVP 50 ml IVP once; (1 amp) Route: IVP; Site: right forearm; tl4 18:49 Follow up: Response: No adverse reaction tl4 18:08 Drug: Albuterol Inhalation 2.5 mg Inhalation once {Note: via nebulizer set up with face tl4 mask, oxygen at 8lpm.} Route: Inhalation; 18:49 Follow up: Response: No adverse reaction tl4 18:45 Drug: Kayexalate PO 30 grams PO once Route: PO; tl4 18:48 Follow up: Response: No adverse reaction tl4 18:45 Drug: Furosemide IVP 40 mg IVP once; give over 2 minutes Route: IVP; Site: left tl4 antecubital; 18:48 Follow up: Response: No adverse reaction tl4 18:57 Drug: Furosemide IVP 40 mg IVP once; give over 2 minutes Route: IVP; Infused Over: 2 tl4 mins; Site: left antecubital; 19:11 Follow up: Response: No adverse reaction tl4 Medication: 16:56 VIS not applicable for this client. tl4 Intake: 18:47 IV: 200ml; Total: 200ml. tl4 Outcome: 18:01 Decision to Hospitalize by Provider. sp3 02 01:41 Admitted to Med/surg accompanied by tech, family with patient, via stretcher, room 428, tm6 with chart, Report called to Tatum GARCÍA Condition: stable Instructed on the need for admit, 01:42 Patient left the ED. tm6 Signatures: Dispatcher [employer] EDMS Bon Ames MD MD rn Botello, Elizabeth eb Sims, Lauren, RN RN ld1 Nina Oviedo MD MD sp3 Thalia Grigsby RN RN km8 Ras Herrmann RN RN tm6 Logda, Jose Antonio tl4 Mita Pettit RN ld1 Corrections: (The following items were deleted from the chart) 0203 19:00 16:49 BP 192 / 87; Pulse 58bpm; Resp 17bpm; Pulse Ox 97% RA; tl4 tl4 19:00 17:02 BP 192 / 87; Pulse 54bpm; Resp 17bpm; Pulse Ox 96% RA; ld1 tl4 19:00 18:00 BP 206 / 74; Pulse 62bpm; Resp 20bpm; Pulse Ox 97% RA; ld1 tl4
--- NOTE | 2023-07-07 18:02 | EDPHYS ---
Physician Documentation [facility] Name: Renetta Ward Age: 87 yrs Sex: Female : 1935 Arrival Date: 07/07/2023 Time: 15:30 Bed 6 Private MD: ED Physician Nina Oviedo HPI: 07/07 15:47 This 87 yrs old Female presents to ER via Unassigned with complaints of sp3 Weakness. 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 No focal deficits noted. Speech is not altered per daughter. She denies any other symptoms including fever, URI symptoms, neck pain, chest pain, shortness of breath, abdominal pain, nausea, vomiting, diarrhea, syncope, near syncope, known sick contacts, travel history, or any other signs or symptoms on ROS at this time.. Historical: - Allergies: 15:54 Promethazine; tl4 - PMHx: 15:54 acid reflux; Alzheimer's disease; Hypercholesterolemia; Hypertension; tl4 - Immunization history:: Adult Immunizations unknown. - Social history:: Smoking status: Patient denies any tobacco usage or history of. ROS: 15:48 Constitutional: Negative for fever, chills, and weight loss, Eyes: Negative for injury, sp3 pain, redness, and discharge, ENT: Negative for injury, pain, and discharge, Neck: Negative for injury, pain, and swelling, Cardiovascular: Negative for chest pain, palpitations, and edema, Respiratory: Negative for shortness of breath, cough, wheezing, and pleuritic chest pain, Abdomen/GI: Negative for abdominal pain, nausea, vomiting, diarrhea, and constipation, Back: Negative for injury and pain, MS/Extremity: Negative for injury and deformity, Skin: Negative for injury, rash, and discoloration, Endocrine: Negative for neck swelling, polydipsia, polyuria, polyphagia, and marked weight changes, Hematologic/Lymphatic: Negative for swollen nodes, abnormal bleeding, and unusual bruising, 15:48 All other systems are negative, Exam: 15:48 Constitutional: This is a well developed, well nourished patient who is awake, alert, sp3 and in no acute distress. Head/Face: Normocephalic, atraumatic. Eyes: Pupils equal round and reactive to light, extra-ocular motions intact. Lids and lashes normal. Conjunctiva and sclera are non-icteric and not injected. Cornea within normal limits. Periorbital areas with no swelling, redness, or edema. ENT: Nares patent. No nasal discharge, no septal abnormalities noted. External auditory canals are clear. Oropharynx with no redness, swelling, or masses, exudates, or evidence of obstruction, uvula midline. Mucous membranes moist. Neck: Trachea midline, no thyromegaly or masses palpated, and no cervical lymphadenopathy. Supple, full range of motion without nuchal rigidity, or vertebral point tenderness. No Meningismus. Chest/axilla: Normal chest wall appearance and motion. Nontender with no deformity. No lesions are appreciated. Cardiovascular: Regular rate and rhythm with a normal S1 and S2. No gallops, murmurs, or rubs. Normal PMI, no JVD. No pulse deficits. Respiratory: Lungs have equal breath sounds bilaterally, clear to auscultation and percussion. No rales, rhonchi or wheezes noted. No increased work of breathing, no retractions or nasal flaring. Abdomen/GI: Soft, non-tender, with normal bowel sounds. No distension or tympany. No guarding or rebound. No evidence of tenderness throughout. Back: No spinal tenderness. No costovertebral tenderness. Full range of motion. Skin: Warm, dry with normal turgor. Normal color with no rashes, no lesions, and no evidence of cellulitis. MS/ Extremity: Pulses equal, no cyanosis. Neurovascular intact. Full, normal range of motion. Neuro: Awake and alert, GCS 15, oriented to person, place, time, and situation. Cranial nerves II-XII grossly intact. Motor strength 5/5 in all extremities. Sensory grossly intact. Cerebellar exam normal. Normal gait. Psych: Awake, alert, with orientation to person, place and time. Behavior, mood, and affect are within normal limits. 15:48 Neuro: NIH stroke scale is 0. Patient is globally weak but no focal deficits noted., 16:32 ECG was reviewed by the Attending Physician. EKG demonstrates normal sinus rhythm at 60 sp3 bpm with normal intervals, normal axis, high voltage, nonspecific diffuse ST's ST changes without evidence of acute ischemia. Vital Signs: 15:51 BP 179 / 70; Pulse 58; Resp 17; Temp 98.5(O); Pulse Ox 95% on R/A; Weight 75.75 kg (M); tl4 Height 4 ft. 8 in. (R); 16:30 BP 192 / 87; Pulse 58; Resp 17; Pulse Ox 97% on R/A; tl4 17:02 BP 191 / 81; Pulse 54; Resp 17; Pulse Ox 96% on R/A; tl4 17:30 BP 206 / 74; Pulse 62; Resp 20; Pulse Ox 97% on R/A; tl4 18:02 BP 169 / 71; Pulse 53; Resp 15; Pulse Ox 97% on R/A; tl4 18:30 BP 182 / 64; Pulse 58; Resp 15; Pulse Ox 96% on R/A; tl4 19:10 BP 182 / 64; Pulse 56; Resp 18; Pulse Ox 99% ; tl4 19:37 BP 158 / 66; Pulse 58; Pulse Ox 93% on R/A; tm6 20:00 BP 161 / 63; Pulse 59; Resp 16; Pulse Ox 95% on R/A; km8 20:15 BP 162 / 62; Pulse 50; Resp 17; Pulse Ox 96% on R/A; km8 21:55 BP 149 / 76; Pulse 60; Pulse Ox 96% on R/A; tm6 22:30 BP 129 / 81; Pulse 61; Resp 16; Pulse Ox 96% on R/A; km8 15:51 Body Mass Index 37.44 (75.75 kg, 142.24 cm) tl4 Cecile Coma Score: 16:50 Eye Response: spontaneous(4). Motor Response: obeys commands(6). Verbal Response: tl4 oriented(5). Total: 15. MDM: 15:43 Patient medically screened. sp3 15:48 Data reviewed: vital signs, nurses notes, EMS record, lab test result(s), EKG, sp3 radiologic studies. ED course: 87-year-old female with global weakness and fatigue. Differential diagnosis is broad and includes infection, UTI, pneumonia, viral syndrome, electrolyte abnormality, acute coronary syndrome, intracranial process, influenza, COVID-19, among others. Workup will include CT scan of the head, chest x-ray, routine laboratory values, catheterized UA, nasal swabs, and general observation with probable admission given her debilitated state. Final disposition pending workup and patient course.. 17:59 ED course: 8.6 potassium reviewed. No EKG changes noted. Stat call to renal was placed sp3 and emergent dialysis is being scheduled. I will be placing a Gabriel catheter for access. Lasix, Kayexalate, calcium gluconate, insulin and glucose, and albuterol have all been initiated. Patient will be admitted to internal medicine. Also cardiology consultation given mild elevation in troponin. Patient with no complaints.. 18:46 ED course: Procedure note. Double-lumen temporary dialysis catheter was placed by me in sp3 the right femoral vein using sterile fashion and Seldinger technique with preliminary ultrasound verification of landmarks. Catheter was stitched into place with suture. It was then covered in sterile fashion now waiting for dialysis team.. 21:30 ED course: Pt getting emergent dialysis now.. rn 07/07 15:45 Order name: Blood Culture Adult (2) 3 07/07 15:45 Order name: CBC with Diff; Complete Time: 17:37 3 07/07 15:45 Order name: CMP; Complete Time: 17:37 3 07/07 15:45 Order name: Lactate w/ 2H reflex if indic.; Complete Time: 17:37 3 07/07 15:45 Order name: Protime (+inr); Complete Time: 17:37 3 07/07 15:45 Order name: Urinalysis w/ reflexes; Complete Time: 17:42 3 07/07 15:45 Order name: Troponin High Sensitivity; Complete Time: 17:37 3 / 15:45 Order name: Flu; Complete Time: 17:02 3 07/07 15:45 Order name: SARS RAPID; Complete Time: 17:02 3 07/07 17:44 Order name: BMP; Complete Time: 19:37 3 07/07 19:27 Order name: Hep B surface AG w/Reflex EDOR 07/07 19:27 Order name: Hepatitis B Surface Ab, QL/QN EDOR 07/08 00:27 Order name: CMP tm6 07/08 00:55 Order name: Comprehensive Metabolic Panel EDOR 02/03 15:45 Order name: Chest Single View XRAY; Complete Time: 16:31 sp3 07/07 15:45 Order name: CT Head Brain wo Cont; Complete Time: 16:31 sp3 07/07 15:45 Order name: EKG; Complete Time: 15:46 sp3 07/07 15:45 Order name: Cardiac monitoring; Complete Time: 15:45 sp3 07/07 15:45 Order name: Cath; Complete Time: 15:54 sp3 07/07 15:45 Order name: EKG - Nurse/Tech; Complete Time: 15:45 sp3 07/07 15:45 Order name: IV Saline Lock - Large Bore; Complete Time: 15:46 sp3 07/07 15:45 Order name: Labs collected and sent; Complete Time: 17:02 sp3 07/07 15:45 Order name: O2 Sat Monitoring; Complete Time: 15:46 sp3 07/07 15:45 Order name: Vital Signs; Complete Time: 15:46 sp3 Administered Medications: 18:05 Drug: Calcium Gluconate IVPB 2 grams IVPB once over 60 mins; (mix in NS 100 mL) Route: tl4 IVPB; Rate: 50 ml/hr; Infused Over: 60 mins; Site: right forearm; Delivery: Primary tubing; 18:47 Follow up: Response: No adverse reaction; IV Status: Completed infusion; IV Intake: tl4 200ml 18:06 Drug: Insulin Regular Human IVP 10 units IVP once {Co-Signature: airam1 (Mita Pettit tl4 RN).} Route: IVP; Site: left antecubital; 18:49 Follow up: Response: No adverse reaction tl4 18:07 Drug: D50W IVP 50 ml IVP once; (1 amp) Route: IVP; Site: right forearm; tl4 18:49 Follow up: Response: No adverse reaction tl4 18:08 Drug: Albuterol Inhalation 2.5 mg Inhalation once {Note: via nebulizer set up with face tl4 mask, oxygen at 8lpm.} Route: Inhalation; 18:49 Follow up: Response: No adverse reaction tl4 18:45 Drug: Kayexalate PO 30 grams PO once Route: PO; tl4 18:48 Follow up: Response: No adverse reaction tl4 18:45 Drug: Furosemide IVP 40 mg IVP once; give over 2 minutes Route: IVP; Site: left tl4 antecubital; 18:48 Follow up: Response: No adverse reaction tl4 18:57 Drug: Furosemide IVP 40 mg IVP once; give over 2 minutes Route: IVP; Infused Over: 2 tl4 mins; Site: left antecubital; 19:11 Follow up: Response: No adverse reaction tl4 Disposition Summary: 07/07/23 18:01 Hospitalization Ordered Notes: Hospitalization Status: Inpatient Admission sp3 Location: Telemetry/MedSurg (Inpatient) sp3 Condition: Stable sp3 Problem: new sp3 Symptoms: have worsened sp3 Bed/Room Type: Standard sp3 Provider: Teddy Nash(07/07/23 20:17) rn Room Assignment: [facility](07/07/23 20:31) jb4 Diagnosis - Acute renal injury, hyperkalemia, generalized weakness sp3 Forms: - Medication Reconciliation Form sp3 - SBAR form sp3 - Leadership Thank You Letter sp3 Signatures: Dispatcher [employer] EDMS Bon Ames MD MD rn Bryson, James, RN RN jb4 Nina Oviedo MD MD sp3 LogJose Antonio soto tl4 Mita Pettit RN ld1 Corrections: (The following items were deleted from the chart) 18:11 17:44 BASIC METABOLIC PANEL+[id number].LAB.BRZ ordered. EDOR EDOR 20:17 18:01 Jah Tolbert sp3 rn 20:31 18:01 sp3 jb4
[2023-07-07 19:17] LABS: Potassium 7.4 mEq/L (3.5-5.1)
[2023-07-07] MEDS ORDERED: ONDANSETRON 4 MG/2 ML VIAL IV PRN (22:15)
[2023-07-07] MEDS ORDERED: ACETAMINOPHEN 500 MG TAB PO PRN (22:15)
[2023-07-07 22:16] LABS: Hepatitis B surface AG Interp. Nonreactive (Nonreactive)
[2023-07-07 23:06] VITALS: BMI 37.4
[2023-07-08 00:55] LABS: Albumin 3.2 g/dL (3.4-5.0); Bilirubin Total 0.5 mg/dL (0.2-1.0); Protein, Total 7.8 g/dL (6.4-8.2)
[2023-07-08 06:52] LABS: Absolute Lymphocytes (CBC) 1.7 K/uL (0.7-4.9); Hematocrit 40.3 % (36.0-45.0); Lymphocytes % 14.5 % (15.3-44.8); MCV 88.8 fL (80-100); MPV 7.9 fL (7.6-11.3); Platelets 202 thou/uL (152-406); RBC Red Blood Cell Count 4.54 M/uL (3.86-4.86)
[2023-07-08 07:06] LABS: Potassium 6.7 mEq/L (3.5-5.1)
[2023-07-08] MEDS: D50W 25 GM/50 ML SYRINGE IV ONE (07:55)
[2023-07-08] MEDS ORDERED: GLUCAGON 1 MG/VIAL IM PRN (07:56)
[2023-07-08] MEDS: NA CHLORIDE 0.9% 1,000 ML IV ONE (08:24)
[2023-07-08 08:29] LABS: Thyroid Stimulating Hormone 2.42 uIU/mL (0.358-3.740)
[2023-07-08] MEDS: SODIUM ZIRCONIUM CYCLOSILICATE 10 GM/PKT PO ONE (09:39)
[2023-07-08] MEDS: FUROSEMIDE 100 MG/10 ML VIAL IV ONE (09:41)
[2023-07-08] MEDS: INSULIN REGULAR (HUMAN) 100 UNIT/ML IV ONE (09:41)
[2023-07-08] MEDS: D10W 250 ML BAG IV PRN (09:47)
[2023-07-08] MEDS: ALBUTEROL 2.5 MG/3 ML NEB SOL NEB ONE (10:10)
--- NOTE | 2023-07-08 10:32 | P.HP ---
Certification for Inpatient Patient admitted to: Inpatient With expected LOS: >2 Midnights Practitioner: I am a practitioner with admitting privileges, knowledge of patient current condition, hospital course, and medical plan of care. 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 SHE IS ON SPIRONOLACTONE FOR MORE THAN 5 YEARS AT THE SAME DOSE OF 100 MG DAILY. SHE HAS HAD LAB EVERY 3 MTHS AT OFFICE WITH K WITHIN RANGE AND MILD HIGH CREATININE. PER FAMILY SOMEHOW SHE QUIT EATING AND DRINKING WELL ABOUT A MONTH AGO AND HAD DIARRHEA ABOUT A WEEK AGO. SHE KEPT ON TAKING MEDICINES AND HER K WENT VERY HIGH WITH ACUTE RENAL FAILURE. DR CERNA HAS BEEN WORKING ON HIGH K WITH LOKELMA, D50, INSULIN, BICARB ETC. SHE ALSO HAD ONE URGENT HD AND WILL GET ONE MORE TIME THIS AM. Allergies No Known Allergies Allergy (Unverified 11/01/11 11:41) Home Medications: Albuterol Sulfate [Ventolin Hfa] 2 puff IH PRN PRN 07/08/23 Donepezil [Aricept*] 10 mg PO BEDTIME 07/08/23 Furosemide 40 mg PO DAILY 07/08/23 Hydralazine [Apresoline*] 100 mg PO BID 07/08/23 Iron 65 mg PO BID 07/08/23 Magnesium [Magnesium Gluconate] 200 mg PO BEDTIME 07/08/23 Mirabegron [Myrbetriq] 25 mg PO DAILY 07/08/23 Paroxetine HCl [Paxil] 20 mg PO DAILY 07/08/23 Propranolol [Inderal LA*] 120 mg PO DAILY 07/08/23 Spironolactone [Aldactone*] 100 mg PO DAILY 07/08/23 cloNIDine HCL [Clonidine HCl] 0.1 mg PO BID 07/08/23 - Past Medical/Surgical History Has patient received pneumonia vaccine in the past: Yes Diabetic: No - Social History Smoking Status: Never smoker Alcohol use: No CD- Drugs: No Caffeine use: Yes Place of Residence: Home Review of Systems General: Weakness, Malaise Physical Examination - Vital Signs Temperature: 97.5 F Blood Pressure: 154/75 Pulse: 61 Respirations: 17 Pulse Ox (%): 96 - Physical Exam General: Oriented x2, Mild distress, Obese HEENT: Atraumatic, PERRLA, Mucous membr. moist/pink, EOMI, Sclerae nonicteric Neck: Supple, 2+ carotid pulse no bruit, No LAD, Without JVD or thyroid abnormality Respiratory: Clear to auscultation bilaterally, Normal air movement Cardiovascular: Regular rate/rhythm, Normal S1 S2, Edema Gastrointestinal: Normal bowel sounds, No tenderness Musculoskeletal: No tenderness Integumentary: No rashes Neurological: Normal gait, Normal speech, Normal strength at 5/5 x4 extr, Normal tone, Normal affect Lymphatics: No axilla or inguinal lymphadenopathy - Studies Laboratory Data (last 24 hrs) 07/07/23 07/07/23 07/07/23 18:39 16:58 16:58 WBC Hgb Hct Plt Count PT 12.2 INR 1.11 Sodium 137 137 Potassium 7.4 H* D 8.6 H* BUN 79 H 79 H Creatinine 2.44 H 2.44 H Glucose 103 99 Total Bilirubin 0.3 AST 9 L ALT 19 Alkaline Phosphatase 98 07/07/23 16:58 WBC 10.60 Hgb 13.6 Hct 41.3 Plt Count 309 PT INR Sodium Potassium BUN Creatinine Glucose Total Bilirubin AST ALT Alkaline Phosphatase Microbiology Data (last 24 hrs): 07/07/23 16:20 Nasopharnyx Influenza Type A Antigen Screen - Final 07/07/23 16:20 Nasopharnyx Influenza Type B Antigen Screen - Final Assessment and Plan - Problems (Diagnosis) (1) Hyperkalemia Current Visit: Yes Status: Acute Plan: MANAGED BY DR. SANCHEZ ABOVE IN HPI DAILY LAB (2) Acute renal failure Current Visit: Yes Status: Acute Plan: ON HD FOR NOW. PROGNOSIS IS POOR SHE IS 87 WITH MANY COMORBIDITIES. I HAD LONG DISCUSSION WITH FAMILY ABOUT HER CONDITION AND POOR PROGNOSIS I ADVISED DNR. (3) Cirrhosis of liver with ascites Current Visit: Yes Status: Acute Plan: HOLD MEDS FOR NOW. (4) Morbid obesity Current Visit: Yes Status: Chronic (5) Hepatic encephalopathy Current Visit: Yes Status: Chronic Plan: SHE HAS BEEN LACTULOSE OFF AND ON IN PAST (6) Morbid obesity with BMI of 40.0-44.9, adult Current Visit: Yes Status: Acute - Advance Directives Does patient have a Living Will: No Does patient have a Durable POA for Healthcare: No
[2023-07-08] MEDS: PROPRANOLOL HCL 60 MG SA CAP PO SCH (11:00)
[2023-07-08] MEDS ORDERED: HYDRALAZINE HCL 10 MG TABLET PO SCH ×3 (11:00→21:00)
[2023-07-08] MEDS: cloNIDine HCL 0.1 MG TAB PO SCH (11:00)
--- NOTE | 2023-07-08 14:48 | CON ---
Date of Consultation: 07/08/2023 Reason For Consultation: Elevated BUN and creatinine, hyperkalemia. History Of Present Illness: This is a pleasant 87-year-old female, all the information has been obtained by the help of a nurse finance clerk. The patient known to have history of cirrhosis secondary to fatty liver disease, chronic kidney disease with baseline creatinine 1.5, GFR of 32 as of April 2023, hypertension, the patient being in her regular state of health. The patient being on spironolactone for years without changing the dose of 100 mg. The patient has been followed up with her primary and being on the same dosage with close followup on her kidney function and been stable. The patient apparently start to have diarrhea for the last couple of days and started to have nausea without any vomiting, decreased intake, her condition started getting worse. For that reason, reported to the hospital. Upon arrival to the hospital, the patient found to have a potassium of 8.6. With acute kidney injury, creatinine 2.4 and GFR of 19. For that reason, we have been consulted. We took the patient for urgent dialysis. The patient was given the cocktail of the treatment, potassium drop down to 6. Today, repeated potassium up again to 6.7. The patient denied taking any nonsteroidal. No recent IV contrast. The patient is still nonoliguric. Past Medical History: Includes: 1. Cirrhosis. 2. Hypertension. 3. Hyperlipidemia. 4. Chronic kidney disease stage IIIB. Baseline creatinine 1.5, GFR of 32, as of April 2023. Allergies: NO KNOWN DRUGS ALLERGY. Home Medications: Includes: 1. Albuterol. 2. Tylenol 3. Lasix 40. 4. Hydralazine. 5. Magnesium. 6. Myrbetriq. 7. Paroxetine. 8. Aldactone. 9. Propranolol. 10. Clonidine. Past Surgical History: Negative. Social History: Denied smoking, denied drinking, denied drugs abuse. Review of Systems: Head and Neck: No red eye. No ear pain. GI: Has nausea, vomiting. Has diarrhea. : No polyuria, no dysuria, no hematuria. FLOOR WORKER TRANSFER BAY: No vaginal discharge. Respiratory: No shortness of breath. Cardiovascular: No chest pain. Endocrine: No polydipsia. Skin: No rash. Neuro: Has weakness on the lower extremity. Musculoskeletal: Generalized fatigue. Physical Examination: Vital Signs: When I saw the patient, blood pressure 154/75, pulse of 61, afebrile. Chest: Decreased entry bilateral base. Heart: S1, S2. Regular. Abdomen: Obese. No guarding or rebound. Could not appreciate any organomegaly. Extremities: No edema. Neuro: Alert. No focality. Laboratory Data: Upon presentation to the hospital, sodium 137, potassium 8.6, bicarb 23, BUN 79, creatinine 2.4, GFR 19, calcium 9.2. WBC 10.6, hemoglobin 13.6. Latest lab data; sodium 135, potassium 6.7, bicarb 23, BUN 51, creatinine 2.3, GFR of 20, calcium 8.6. TSH 2.4. Urinalysis negative for infection. Current Medications: The patient on, include: 1. Pantoprazole 2. Albuterol. 3. Inderal. 4. Hydralazine 100 t.i.d. 5. Paroxetine. 6. Tylenol. Chest x-ray, cardiomegaly with mild congestion. Assessment And Plan: 1. Acute kidney injury on advanced chronic kidney disease mostly secondary to cardiorenal, superimposed with prerenal secondary to GI loss and dehydration, superimposed with the Lasix and spironolactone complicated with hyperkalemia and hyponatremia. 2. Given the persistence of hyperkalemia, I am going to go ahead and repeat another session of dialysis today. We will dialyze the patient on low potassium bath and we will follow up. 3. Hold spironolactone, hold Lasix and I will follow up the patient closely. 4. Start the patient on IV hydration. 5. I will get renal ultrasound to evaluate the obstructive uropathy as the patient mentioned that she is incontinent. 6. Hyponatremia secondary to renal failure and cirrhosis, superimposed with some depletional component. I am going to start the patient on IV hydration, normal saline and will follow up. 7. Hyperkalemia persists mostly secondary to renal failure superimposed with spironolactone. We will do another urgent dialysis today and we will dialyze on low potassium bath and we will follow up. I am going to send for cortisol and TSH with CK. We will send for urine electrolyte to evaluate for transtubular potassium gradient. 8. I am going to go ahead and hold spironolactone and we will follow up. 9. Hypertension, controlled, optimal, continue current treatment with the presence of hyperkalemia and renal failure. Hold spironolactone. 10. Cirrhosis as by primary. Thank you, Dr. Nash for allowing us to participate in the care of your patient. Time spent examining the patient [id number] reviewing that the lab and the radiology placing orders or discussing the case with the patient discussing the case with the steam plant control room operator including hospitalist and nursing staff more than 75 minutes ISABEL Voice ID: [id number] Report ID: [id number] KO
[2023-07-08] MEDS: PARoxetine HCL 10 MG TAB PO SCH (15:33)
[2023-07-08] MEDS: NA CHLORIDE 0.9% 1,000 ML IV SCH (15:33)
[2023-07-08 17:08] LABS: Potassium 4.6 mEq/L (3.5-5.1)
--- NOTE | 2023-07-08 17:15 | RAD REPORT ---
EXAM DESCRIPTION: US - Renal Ultrasound-Complete - 07/08/2023 4:57 pm CLINICAL HISTORY: Acute renal insufficiency COMPARISON: None FINDINGS: The right kidney measures 9 cm with a normal echotexture. Two cysts right kidney. Largest 2.3 centimeters The left kidney measures 8 cm with a normal echotexture. Hydronephrosis is not seen. Bladder poorly visualized IMPRESSION: Right renal cysts
[2023-07-08] MEDS: HYDRALAZINE HCL 25 MG TABLET PO SCH (20:36)
[2023-07-08] MEDS: DONEPEZIL HCL 5 MG TAB PO SCH (20:37)
[2023-07-08 22:02] LABS: UR PROTEIN 62.7 mg/dL (<11.9); UR PROTEIN 63.9 mg/dL (<11.9); Urine Protein/Creatinine Ratio 0.35 ratio (<0.15)
[2023-07-08 22:10] LABS: Specific Gravity 1.013 (1.005-1.030); Urine Bilirubin NEGATIVE (Negative); Urine Blood 2+ (Negative); Urine Clarity Extremely Turbid (Clear); Urine Color Yellow (Yellow); Urine Glucose NEGATIVE (Negative); Urine Protein 1+ (Negative); Urine Urobilinogen Normal (Normal)
[2023-07-09 07:30] LABS: Albumin 2.7 g/dL (3.4-5.0); Phosphorus 5.5 mg/dL (2.5-4.9); Potassium 4.5 mEq/L (3.5-5.1)
[2023-07-09] MEDS: MIRABEGRON 25 MG PO SCH (07:47)
[2023-07-09] MEDS ORDERED: HOME MED 1 EA UNK (Paroxetine Hcl [Paxil] 20 MG Tablet) PO SCH (09:00)
--- NOTE | 2023-07-09 15:04 | EKG ---
Test Date: 2023-07-07 Test Time: 15:44:29 Limnologist: Nicolette MARCH MEASUREMENT RESULTS: Intervals: Rate: 57 WY: 178 QRSD: 104 QT: 404 QTc: 393 Shipman: P: 11 WY: 178 QRS: -8 T: 53 INTERPRETIVE STATEMENTS: Sinus bradycardia with marked sinus arrhythmia Incomplete right bundle branch block Left ventricular hypertrophy with repolarization abnormality Cannot rule out Septal infarct, age undetermined Abnormal ECG Compared to ECG 04/28/2023 23:02:24 Incomplete right bundle-branch block now present Left ventricular hypertrophy now present Early repolarization now present Myocardial infarct finding now present Sinus rhythm no longer present Electronically Signed On 07-09-23 15:00:13 DIESEL LUBE TECH by Jose Moody
--- NOTE | 2023-07-09 21:08 | P.PN ---
Subjective Date of Service: 07/09/23 Chief Complaint: WEAKNESS, HIGH K, RENAL FAILURE Subjective: No C/O voiced SHE IS WEAK, SP HD. NOT ABLE TO MOVE MUCH SHE NEEDS PT I ASKED FAMILY TO CONSIDER DNR STATUS, NH FOR PT ETC. Review of Systems 10-point ROS is otherwise unremarkable General: Weakness Physical Examination - Vital Signs Temperature: 97.4 F Blood Pressure: 163/69 Pulse: 65 Respirations: 96 Pulse Ox (%): 96 - Physical Exam General: Oriented x3, Mild distress, Obese HEENT: Atraumatic, PERRLA, EOMI Neck: Supple, JVD not distended Respiratory: Clear to auscultation bilaterally, Normal air movement Cardiovascular: Regular rate/rhythm, Normal S1 S2 Gastrointestinal: Normal bowel sounds, No tenderness Musculoskeletal: No tenderness Integumentary: No rashes Neurological: Normal speech, Normal tone, Normal affect Lymphatics: No axilla or inguinal lymphadenopathy - Studies Medications List Reviewed: Yes Assessment And Plan - Current Problems (Diagnosis) (1) Hyperkalemia Current Visit: Yes Status: Acute Plan: MANAGED BY DR. SANCHEZ ABOVE IN HPI DAILY LAB RESOLVED (2) Acute renal failure Current Visit: Yes Status: Acute Plan: ON HD FOR NOW. PROGNOSIS IS POOR SHE IS 87 WITH MANY COMORBIDITIES. I HAD LONG DISCUSSION WITH FAMILY ABOUT HER CONDITION AND POOR PROGNOSIS I ADVISED DNR. S STILL ON HD SW MET WITH FAMILY. (3) Cirrhosis of liver with ascites Current Visit: Yes Status: Acute Plan: HOLD MEDS FOR NOW. (4) Morbid obesity Current Visit: Yes Status: Chronic (5) Hepatic encephalopathy Current Visit: Yes Status: Chronic Plan: SHE HAS BEEN LACTULOSE OFF AND ON IN PAST (6) Morbid obesity with BMI of 40.0-44.9, adult Current Visit: Yes Status: Acute
--- NOTE | 2023-07-10 02:50 | PN ---
Date of Progress Note: 07/09/2023 Chief Complaint: Elevated BUN and creatinine. Acute kidney injury on advanced chronic kidney diseas e. The patient has multiple medical problems and during this admission, she was found to have cardio renal syndrome. History Of Present Illness: The patient is an 87-year-old woman. She has history of cirrhosis secon asad to fatty liver disease, chronic kidney disease with baseline creatinine of 1.5 and GFR of 32 enrique k in April 2023. She has history of hypertension. The patient was taking spironolactone for long -term and dose was changed previously to 100 mg. The patient has been followed by internal medicine doctor, Dr. Nash. The patient apparently started to have diarrhea in several days prior to this adm ission. The patient was found to have hyperkalemia and received medical treatment in the emergency r oom for hyperkalemia. Potassium level has improved. Review of Systems: Denies chest pain, palpitation. Physical Examination: Lungs: Clear to auscultation bilaterally. Heart: S1, S2. Abdomen: Soft. Extremities: Dressing in place. No oozing. No drainage. Impression And Plan: 1.Acute on chronic kidney injury. The patient has multiple medical problems. During this admission , she was found to have acute kidney injury and adequate p.o. fluid intake is recommended. The patie nt was scheduled to have ultrasound to rule out hydronephrosis. Monitor urinalysis for active urinar y sediment, and check serology studies to rule out acute kidney injury secondary to the monoclonal ga mmopathy, hyponatremia secondary to renal failure and cirrhosis, and hyperkalemia due to effect of sp ironolactone in the setting of acute kidney injury. Monitor electrolytes. Avoid high potassium inta ke. Plan was to evaluate transtubular potassium gradient and additional labs were ordered and pendin g. 2.Hypertension, controlled. Continue current medication, hold spironolactone. 3. , per Primary team. JESSEE/MODL Voice ID: [id number] Report ID: [id number]
[2023-07-10 07:16] LABS: Albumin 2.4 g/dL (3.4-5.0); Phosphorus 4.8 mg/dL (2.5-4.9); Potassium 4.3 mEq/L (3.5-5.1)
[2023-07-10] MEDS: ENOXAPARIN 30 MG/0.3 ML SQ SCH (09:23)
--- NOTE | 2023-07-10 10:31 | P.PN ---
Subjective Date of Service: 07/10/23 Chief Complaint: WEAKNESS, HIGH K, RENAL FAILURE Subjective: No new changes SHE IS WEAK, SP HD. NOT ABLE TO MOVE MUCH SHE NEEDS PT I ASKED FAMILY TO CONSIDER DNR STATUS, NH FOR PT ETC. TALKED TO MANY DAUGHTERS THEY ALL WANT HOSPICE AT HOME. MOTHER IS NOT EATING FOR A MONTH OR SO. NOT ABLE TO WALK ANY LONGER. THERE IS NO QUALITY OF LIFE. Physical Examination - Vital Signs Temperature: 97.6 F Blood Pressure: 142/59 Pulse: 59 Respirations: 17 Pulse Ox (%): 94 - Physical Exam General: Alert, Oriented x3, Mild distress, Moderate distress, Obese HEENT: Normocephalic Neck: Supple, Without JVD or thyroid abnormality Respiratory: Normal air movement Cardiovascular: Normal S1 S2, Edema - Studies Medications List Reviewed: Yes Assessment And Plan - Current Problems (Diagnosis) (1) Hyperkalemia Current Visit: Yes Status: Acute Plan: MANAGED BY DR. SANCHEZ ABOVE IN HPI DAILY LAB RESOLVED (2) Acute renal failure Current Visit: Yes Status: Acute Plan: ON HD FOR NOW. PROGNOSIS IS POOR SHE IS 87 WITH MANY COMORBIDITIES. I HAD LONG DISCUSSION WITH FAMILY ABOUT HER CONDITION AND POOR PROGNOSIS I ADVISED DNR. S STILL ON HD SW MET WITH FAMILY. PATIENT AND FAMILY WANT HOSPICE AT HOME PER HPI. (3) Cirrhosis of liver with ascites Current Visit: Yes Status: Acute Plan: HOLD MEDS FOR NOW. (4) Morbid obesity Current Visit: Yes Status: Chronic (5) Hepatic encephalopathy Current Visit: Yes Status: Chronic Plan: SHE HAS BEEN LACTULOSE OFF AND ON IN PAST (6) Morbid obesity with BMI of 40.0-44.9, adult Current Visit: Yes Status: Acute
[2023-07-10] MEDS ORDERED: ALBUTEROL 2.5 MG/3 ML NEB SOL NEB PRN (17:24)
--- NOTE | 2023-07-10 18:09 | PN ---
Date of Progress Note: 07/10/2023 Subjective: The patient was admitted to the hospital with acute kidney injury and hyperkalemia. Hyperkalemia was secondary to spironolactone, poor intake. The patient baseline creatinine back in April is 1.5. The patient was dialyzed as potassium was elevated up to 6.8. Physical Examination: Vital Signs: When I saw the patient, blood pressure 142/59, pulse of 59, afebrile. The patient had good urine output. Has Taveras. Urine output of 900. Chest: Clear to auscultation. Heart: S1, S2, regular. Abdomen: Soft, nontender. Extremities: No edema. Neurologic: Alert. No focality. Lab: Hemoglobin 13.2. Sodium 139, potassium 4.3, bicarb 25, BUN 52, creatinine up to 3, GFR of 14. Calcium 7.8, phosphorus 4.8. Albumin 2.4, corrected calcium is 9. PC ratio is 0.3. Renal ultrasound, normal, small size kidney, 9 cm, with renal cyst, no hydronephrosis. Current Medications: The patient on include: 1. Lovenox. 2. Albuterol. 3. Hydralazine. 4. Clonidine. 5. IV fluid. Assessment And Plan: 1. Acute kidney injury secondary to toxic ATN, hepatorenal has been ruled out with urine electrolytes. Kidney function continued to decline. The patient had creatinine of 1.5 with GFR of 32 as of April. There is no other clear insult for the patient. I am going to keep holding the Lasix and spironolactone. Continue hydration. I am going to go ahead and send for full serology. We will discuss with the patient. The patient may need kidney biopsy to evaluate as her kidney function continues to decline. The patient currently non uremic. Hyperkalemia has resolved. I hold on dialysis for today, but if kidney function continued to decline, we will consider permanent dialysis. We will place tunneled hemodialysis catheter then at that time, we will proceed. 2. Hypertension, controlled, optimal, keep holding Lasix, hold spironolactone given the acute kidney injury. 3. Diarrhea, resolved. 4. Hyponatremia secondary to dilutional, resolved. Time spent examining the patient [id number] reviewing that the lab and the radiology placing orders or discussing the case with the patient discussing the case with the steam boiler fireman including hospitalist and nursing staff more than 35 minutes ISABEL Voice ID: [id number] Report ID: [id number] KO
[2023-07-11 06:32] LABS: Albumin 2.4 g/dL (3.4-5.0); Phosphorus 4.3 mg/dL (2.5-4.9); Potassium 4.5 mEq/L (3.5-5.1); Uric Acid 5.2 mg/dL (2.6-6.0)
[2023-07-11 07:37] LABS: Rheumatoid Factor NEG (NEG)
--- NOTE | 2023-07-11 12:24 | PN ---
Date of Progress Note: 07/11/2023 Subjective: The patient was admitted to the hospital with acute kidney injury, hyperkalemia. The patient's kidney function back in 06.08. Physical Examination: Vital Signs: Blood pressure 163/68, pulse of 53, afebrile. Chest: Clear to auscultation. Heart: S1, S2 regular. Abdomen: Soft nontender. Extremities: Trace edema. Neurologic: No focality. Laboratory Data: Hemoglobin 13.2. Sodium 138, potassium 4.5, bicarb 24, BUN 43, creatinine 2.4, GFR of 18, uric acid 5.2, calcium 8.1, phosphorus 4.3. Current Medications: The patient is on include tylenol, Lovenox, clonidine, and Inderal. Assessment And Plan: 1. Acute kidney injury secondary to prerenal, recovered, trending down. Apparently, the patient is going to be on hospice. We will consult kidney biopsy. We will follow up with primary. Please avoid NICOL inhibitor or spironolactone. 2. Hyperkalemia secondary to renal failure superimposed with spironolactone, status post dialysis. No need for dialysis currently given the improvement in the kidney function and resolve of hyperkalemia. Continue Lokelma. 3. Hyponatremia secondary to cirrhosis as above, stable. 4. Hypertension, controlled, optimal with edema continue tx 5. History of hyperkalemia. Please avoid spironolactone. Time spent examining the patient [id number] reviewing that the lab and the radiology placing orders or discussing the case with the patient discussing the case with the prepared foods production team member including hospitalist and nursing staff more than 35 minutes ISABEL Voice ID: [id number] Report ID: [id number]
[2023-07-11 13:57] VITALS: BP 151/67; TEMP 97.6
[2023-07-11 15:57] VITALS: O2SAT 95
--- NOTE | 2023-07-11 19:06 | CON ---
Date of Consultation: 07/11/2023 Reason For Service: Removal of a hemodialysis catheter. History Of Present Illness: This is the case of a female, who comes to us with multiple medical prob lems. The ER placed an emergent hemodialysis catheter in the right femoral region. Now, she is travis ng in hospice, they do not need the catheter anymore. They asked me to see her back, remove it. Past Medical History: Cirrhosis, hypertension, hyperlipidemia, kidney disease. Medications: Include Lasix, paroxetine, Aldactone, propranolol, clonidine. Allergies: NONE. Social History: She does not smoke. She does not drink alcohol. Family History: Noncontributory. Review of Systems: No fever. No shortness of breath. No chest pain. Ten points otherwise unremarkable. Physical Examination: General: The patient is awake, alert. No distress. She speaks Micronesian. I do speak Micronesian. So, david foss explained to her what we are doing. Chest: Clear. Abdomen: Soft and depressible. Extremities: Good capillary refill. There is a Gabriel catheter in the right femoral vein with sutu re in place. No evidence of cellulitis. No cyanosis present. No calf tenderness. Dorsalis pedis p ulses still present. Laboratory Data: Blood work shows a WBC count of 11.9, hemoglobin of 13.2, and platelets of 202. IN R is 1.1. Potassium is 4.5 and creatinine is 2.48. Plan: Removal of hemodialysis catheter. I explained to her and to the family member in Kiswahili and Micronesian the benefits, alternatives, and risks of removal of the catheter, which include, but not limi dusty to infection, bleeding, damage to adjacent structures, PE, hematoma, bleeding, AK, and even . She also understands that this may not relieve any symptoms. She understands she will be followed up with the primary doctor. I understand she is leaving on hospice. The procedure is removal of a hemodialysis catheter. Under supine position after time-out, we proceeded to prep the area in a usaam n fashion, removed the stitches. We essentially removed it with care, and then pulled the catheter w ithout resistance and put a blood pressure for about 15 minutes. No bleeding seen. The catheter was removed. The patient tolerated the procedure well. Plan see above. EZEQUIEL/NATALIA Voice ID: [id number] Report ID: [id number]
--- NOTE | 2023-07-11 21:29 | P.DS ---
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 SHE IS ON SPIRONOLACTONE FOR MORE THAN 5 YEARS AT THE SAME DOSE OF 100 MG DAILY. SHE HAS HAD LAB EVERY 3 MTHS AT OFFICE WITH K WITHIN RANGE AND MILD HIGH CREATININE. PER FAMILY SOMEHOW SHE QUIT EATING AND DRINKING WELL ABOUT A MONTH AGO AND HAD DIARRHEA ABOUT A WEEK AGO. SHE KEPT ON TAKING MEDICINES AND HER K WENT VERY HIGH WITH ACUTE RENAL FAILURE. DR CERNA HAS BEEN WORKING ON HIGH K WITH LOKELMA, D50, INSULIN, BICARB ETC. SHE ALSO HAD ONE URGENT HD AND WILL GET ONE MORE TIME THIS AM. JOSE LUIS IS MORBIDLY OBESE, PATIENT WITH CIRRHOSIS, WHO DEVELOPED ACUTE RENAL FAILURE NAD HYPERKALEMIA NEEDEIND HD. FAMILY WANTS HER COMFORTABLE AT HOME. SHE BE PLACED ON HOSPICE FOR ARF AND CIRRHOSIS. Vital Signs/Physical Exam: Temp Pulse Resp BP Pulse Ox 97.6 F 56 18 151/67 H 96 07/11/23 13:00 07/11/23 13:00 07/11/23 13:00 07/11/23 13:00 07/11/23 13:00 Laboratory Data at Discharge: WBC 11.90 thou/uL (4.3-10.9) H 07/08/23 06:19 Hgb 13.2 g/dL (12.0-15.0) 07/08/23 06:19 Hct 40.3 % (36.0-45.0) 07/08/23 06:19 Plt Count 202 thou/uL (152-406) D 07/08/23 06:19 PT 12.2 SECONDS (9.5-12.5) 07/07/23 16:58 INR 1.11 07/07/23 16:58 Sodium 138 mEq/L (136-145) 07/11/23 05:53 Potassium 4.5 mEq/L (3.5-5.1) 07/11/23 05:53 BUN 43 mg/dL (7-18) H 07/11/23 05:53 Creatinine 2.48 mg/dL (0.55-1.02) H 07/11/23 05:53 Glucose 88 mg/dL (74-106) 07/11/23 05:53 Uric Acid 5.2 mg/dL (2.6-6.0) 07/11/23 05:53 Phosphorus 4.3 mg/dL (2.5-4.9) 07/11/23 05:53 Total Bilirubin 0.5 mg/dL (0.2-1.0) 07/08/23 00:30 AST 16 U/L (15-37) 07/08/23 00:30 ALT 21 U/L (13-56) 07/08/23 00:30 Alkaline Phosphatase 93 U/L (45-117) 07/08/23 00:30 Home Medications: Albuterol Sulfate [Ventolin Hfa] 2 puff IH Q4H PRN 07/08/23 Donepezil [Aricept*] 10 mg PO BEDTIME 07/08/23 Hydralazine [Apresoline*] 100 mg PO BID 07/08/23 Iron 65 mg PO BID 07/08/23 Magnesium [Magnesium Gluconate] 200 mg PO BEDTIME 07/08/23 Mirabegron [Myrbetriq] 25 mg PO DAILY 07/08/23 Paroxetine HCl [Paxil] 20 mg PO DAILY 07/08/23 Propranolol [Inderal LA*] 120 mg PO DAILY 07/08/23 cloNIDine HCL [Clonidine HCl] 0.1 mg PO BID 07/08/23 Followup: Teddy Nash MD [Primary Care Provider] -
== END 2023-07-11 18:26 | disposition hospice, home (50) | DRG 640 ==
LOC: ER 15:30 → ERHOLD 20:20 → 4TH 21:57
PROVIDERS: ADMIT Internal Medicine; ATTEND Internal Medicine
PROC: 5A1D70Z Performance of Urinary Filtration, Intermittent, Less than 6 Hours Per Day (ICD-10-PCS; principal; 2023-07-07)
PROC: 05HY33Z Insertion of Infusion Device into Upper Vein, Percutaneous Approach (ICD-10-PCS; 2023-07-07)
PROC: 05PY33Z Removal of Infusion Device from Upper Vein, Percutaneous Approach (ICD-10-PCS; 2023-07-11)
DX: E87.5 Hyperkalemia (principal); N17.0 Acute kidney failure with tubular necrosis; R18.8 Other ascites; Z68.41 Body mass index [BMI] 40.0-44.9, adult; E87.1 Hypo-osmolality and hyponatremia; E66.01 Morbid (severe) obesity due to excess calories; K74.60 Unspecified cirrhosis of liver; K75.81 Nonalcoholic steatohepatitis (NASH); E78.00 Pure hypercholesterolemia, unspecified; I12.9 Hypertensive chronic kidney disease with stage 1 through stage 4 chronic kidney disease, or unspecified chronic kidney disease; N18.32 Chronic kidney disease, stage 3b; K76.82 Hepatic encephalopathy; E86.0 Dehydration; K21.9 Gastro-esophageal reflux disease without esophagitis; T50.0X5A Adverse effect of mineralocorticoids and their antagonists, initial encounter; Z51.5 Encounter for palliative care; Z99.2 Dependence on renal dialysis; Z11.52 Encounter for screening for COVID-19; Z91.158 Patient's noncompliance with renal dialysis for other reason; Z79.899 Other long term (current) drug therapy
CPT/HCPCS: 36415; 70450; 71045; 76770; 80048; 80053; 80069; 81001; 81003; 82435; 82533; 82550; 82570; 82947; 83520; 83605; 83935; 83970; 84132; 84156; 84300; 84443; 84484; 84550; 85025; 85610; 86021; 86160; 86225; 86430; 86706; 86803; 87040; 87340; 87804; 87811; 90935; 93005; 94640; 97116; 97161; 97530; J0612; J1644; J1650; J1815; J1940; J7030; J7613